=== PATIENT | female | born 1930 | race Caucasian/White ===

== ENCOUNTER 2017-04-05 22:27 | Inpatient (IN) | payer OTHER, MEDICARE ==
[~2017-04-05] VITALS: Ht 152.4 cm; Wt 46.5 kg
[~2017-04-05 22:27] MED LIST: FUROSEMIDE20 M1 PO
--- NOTE | 2017-04-05 23:00 | ED AMS/SEIZURE/WEAK/DIZZY ---
History of Present Illness General Chief Complaint: General Adult Stated Complaint: BIBA FOR LETHARGY, ?PACEMAKER ISSUE PER FAMILY Source: family, old records, EMS Exam Limitations: unable to give history, clinical condition Vital Signs & Intake/Output Vital Signs & Intake/Output Vital Signs Date Time Temp Pulse Resp B/P B/P Pulse O2 O2 Flow FiO2 Mean Ox Delivery Rate 04/06 0415 97.8 80 18 115/68 96 Nasal 2.0L Cannula 04/05 2240 97.5 88 22 112/75 96 Nasal 2.0L Cannula Allergies Coded Allergies: NO KNOWN ALLERGIES (03/12/13) Reconcile Medications Furosemide 20 MG TABLET 1 TAB PO DAILY PRN Fluid Overload (Reported) Rivastigmine (Exelon) 9.5 MG/Patch PAT 1 PAT TOP DAILY DEMENTIA (Reported) Triage Note: PT BIBA FROM HOME, FAMILY TOLD EMS PT IS HAVING "PACEMAKER PROBLEMS" AND PT HAS BEEN LETHARGIC AND WEAK X 1 DAY. PER EMS PT IS ONLY N[place] SPEAKING. PT IS ALERT AND SMILING. VSS, PT PLACED ON MONITOR. RCW PACER NOTED. Triage Nurses Notes Reviewed? yes HPI: Patient presents for evaluation of altered mental status. The patient herself is unable to provide history as she is currently noncommunicative. According to EMS the family was concerned that the patient was having a problem with her pacemaker. They state that she is typically communicative and gets around with a walker. Over the course of today however that stopped. Past History Travel History Traveled to [place] past 21 day No Medical History Any Pertinent Medical History? see below for history Neurological: dementia EENT: NONE Cardiovascular: pacemaker Respiratory: CHRONIC COUGH Gastrointestinal: NONE Hepatic: NONE Renal: UTI Musculoskeletal: NONE Psychiatric: depression Endocrine: NONE Blood Disorders: NONE Cancer(s): breast cancer REPEATER CHIEF/Reproductive: NONE History of MRSA: No History of VRE: No History of CDIFF: No Surgical History Surgical History: mastectomy left side Psychosocial History Who do you live with Patient/Self Services at Home None What is your primary language Serbian Family History Family History, If Any: Relation not specified for: *No pertinent family history Hx Contributory? No Review of Systems Review of Systems Constitutional: Reports: see HPI. Comments Patient unable to provide review of systems Physical Exam Physical Exam General Appearance: see below Comments: Gen.: Thin but otherwise Well-nourished, well-developed, not communicative, not cooperative Head: Normocephalic, atraumatic. Eyes: Normal inspection bilaterally, ANÍBAL. Extraocular movements grossly intact Ears: Normal inspection bilaterally Nose: Normal inspection Throat/mouth : Moist mucosa Neck: no goiter Heart: Regular rate and rhythm, no murmurs rubs or gallops Lungs: Clear to auscultation bilaterally with normal air entry (patient has brief periods of tachypnea) Chest: No apparent tenderness Back: No apparent tenderness, no lesions noted Abdomen: Soft, no apparent tenderness, nondistended, normal bowel sounds Extremities: equal radial pulses, no cyanosis clubbing or edema, no spontaneous movements Neurologic: Awake, alert, Cranial nerves grossly intact, unable to assess speech /dysphagia/dysmetria Skin: warm and dry Psychiatric: Unable to assess Core Measures ACS in differential dx? No CVA/TIA Diagnosis Yes Sepsis Present: No Sepsis Focused Exam Completed? No Progress Differential Diagnosis: anemia, CVA/stroke, dehydration, electrolyte imbalance, GI bleed, hypoglycemia, hypoxia, pneumonia, UTI/pyelo Plan of Care: Orders Procedure Date/time Status Saline Lock 04/05 2258 Active Straight Cath 04/05 2258 Active CULTURE,URINE 04/05 2258 Active URINE DRUG SCREEN FOR ER ONLY 04/05 2258 Complete URINALYSIS 04/05 2258 Complete THYROID STIMULATING HORMONE 04/05 2258 Complete TROPONIN LEVEL 04/05 2258 Complete T3 UPTAKE (THYROXINE BIND CAP) 04/05 2258 Complete THYROXINE 04/05 2258 Complete ETHANOL 04/05 2258 Complete COMPREHENSIVE METABOLIC PANEL 04/05 2258 Complete CBC WITHOUT DIFFERENTIAL 04/05 2258 Complete EKG 04/05 2227 Active Laboratory Tests 04/06/17 0320: Urine Opiates Screen < 100.00, Methadone Screen < 40, Barbiturate Screen < 60, Ur Phencyclidine Scrn < 6.00, Amphetamines Screen < 100, U Benzodiazepines Scrn < 85, Urine Cocaine Screen < 50, Urine Cannabis Screen < 5.00, Urinalysis MOD H , Urine Color MARLO, Urine Clarity CLEAR, Urine pH 6.0, Ur Specific [place] >= 1.030, Urine Protein TRACE H, Urine Ketones NEG, Urine Nitrite NEG, Urine Bilirubin NEG, Urine Urobilinogen 1.0, Ur Leukocyte Esterase NEG, Ur Microscopic SEDIMENT EXAMINED, Urine RBC 3-5, Urine WBC RARE, Ur Epithelial Cells FEW, Urine Bacteria FEW H, Hyaline Casts RARE H, Urine Mucus FEW, Urine Hemoglobin TRACE- INTACT, Urine Glucose NEG 04/06/17 0300: Anion Gap 15, Estimated GFR 52 L, BUN/Creatinine Ratio 88.0 H, Glucose 121 H, Calcium 8.6, Total Bilirubin 1.2, AST 52 H, ALT 69 H, Alkaline Phosphatase 158 H, Troponin I 0.02, Total Protein 6.6, Albumin 3.3 L, Globulin 3.3, Albumin/ Globulin Ratio 1.0 L, TSH 1.740, Thyroxine (T4) 6.1, Thyroxine Binding Indx 48.4 H, CBC w Diff NO MAN DIFF REQ, RBC 3.50 L, MCV 100.9 H, MCH 32.6 H, MCHC 32.3 L, RDW 16.8 H, MPV 9.7, Gran % 72.3, Lymphocytes % 18.7 L, Monocytes % 8.5, Eosinophils % 0.3, Basophils % 0.2, Absolute Granulocytes 7.6 H, Absolute Lymphocytes 2.0, Absolute Monocytes 0.9 H, Absolute Eosinophils 0, Absolute Basophils 0, Serum Alcohol < 10.0 Microbiology 04/06 0320 URINE ROUT: Urine Culture - RECD Diagnostic Imaging: Discussed w/RAD: Radiology Read, CT Scan. Radiology Impression: PATIENT: ZAINA WU PRESENT AGE: 86 PATIENT ACCOUNT NO: [id number] : [birth year] LOCATION: [facility] ORDERING PHYSICIAN: Jan Whittington MD SERVICE DATE: 04/05/17 EXAM TYPE: CAT - CT HEAD WO IV CONTRAST EXAMINATION: CT HEAD WITHOUT CONTRAST CLINICAL INFORMATION: Altered mental status. COMPARISON: 03/15/2013 TECHNIQUE: Contiguous axial imaging was performed from the skull base to vertex without intravenous contrast. DLP: 540 mGy-cm. FINDINGS: There is no evidence of acute intracranial hemorrhage or territorial infarction. No abnormal mass effect or midline shift is seen. Pablo to white matter differentiation is well preserved. No extra-axial fluid collections are identified. Prominence of the ventricles and sulcal spaces is consistent with moderate to severe volume loss. There is difficult to exclude a component of normal pressure hydrocephalus given the prominence of the ventricles. Confluent periventricular and deep white matter hypoattenuation is consistent with severe small vessel ischemic changes. The osseous structures and soft tissues are normal. The mastoid air cells and visualized portions of the paranasal sinuses are well aerated. IMPRESSION: No acute intracranial pathology. Extensive cerebral volume loss with small vessel ischemic changes. It is difficult to exclude a component of normal pressure hydrocephalus given the prominence of the ventricles. DICTATED BY: Alek Gutierrez MD DATE/TIME DICTATED:04/05/172320 DIRECTOR OF CRITICAL CARE:TEE DATE/TIME TRANSCRIBED:2320 CONFIDENTIAL, DO NOT COPY WITHOUT APPROPRIATE AUTHORIZATION. < Electronically signed in Other Vendor System> SIGNED BY: Alek Gutierrez MD 04/05/172327, PATIENT: ZAINA WU PRESENT AGE: 86 PATIENT ACCOUNT NO: [id number] : [birth year] LOCATION: [facility] ORDERING PHYSICIAN: Jan Whittington MD SERVICE DATE: 04/06/17 EXAM TYPE: CAT - CT ABD & PELVIS W IV CONTRAST EXAMINATION: CT ABDOMEN AND PELVIS WITH CONTRAST CLINICAL INFORMATION: Altered mental status with elevated liver studies. COMPARISON: 09/29/2016 TECHNIQUE: Multidetector volumetric imaging was performed of the abdomen and pelvis following IV administration of 94 mL of Optiray 320 intravenous contrast. Sagittal and coronal reformatted images were obtained on the technologist's workstation. DLP: 264 mGy-cm FINDINGS: LUNG BASES: Small to moderate bilateral pleural effusions with bibasilar opacities are noted. The heart is enlarged. Cardiac pacer leads noted. Coronary artery calcifications. LIVER, GALLBLADDER, AND BILIARY TREE: The liver is normal in size, shape, and attenuation. No focal hepatic lesion or biliary ductal dilatation is present. Trace perihepatic ascites, similar to previous. Cholecystectomy. PANCREAS: Mild fatty atrophy of the pancreas with no focal parenchymal abnormality. SPLEEN: Unremarkable. ADRENAL GLANDS: Unremarkable. KIDNEYS AND URETERS: The kidneys are normal in size, shape, and attenuation. No hydronephrosis, hydroureter, or calculi seen. No perinephric stranding. BLADDER: Unremarkable. GASTROINTESTINAL TRACT: The stomach is decompressed with no gross abnormality. The small bowel is normal in caliber. No obstruction. Normal appendix. No colonic wall thickening or inflammatory change. A majority of the colon is also decompressed. There is sigmoid diverticulosis without diverticulitis. No free air. Small amount of pelvic free fluid. ABDOMINAL WALL: No significant hernia is appreciated. Mild anasarca. LYMPH NODES: Normal. VASCULAR: Normal caliber aorta with moderate atherosclerotic calcifications. PELVIC VISCERA: Calcifications of the uterus likely representing small fibroids. No adnexal mass. OSSEOUS STRUCTURES: No acute or suspicious osseous abnormality. Mild anterior wedge compression deformity of the T11 vertebral body is unchanged. Hardware within the left femur is again noted. Degenerative changes of both hips. IMPRESSION: No acute findings in the abdomen or pelvis. No inflammatory changes. Small volume of ascites, similar to previous. Small to moderate bilateral pleural effusions are also similar to prior. DICTATED BY: Alek Gutierrez MD DATE/TIME DICTATED:04/06/17442 DIRECTOR OF CRITICAL CARE:TEE DATE/TIME TRANSCRIBED:04/06/17442 CONFIDENTIAL, DO NOT COPY WITHOUT APPROPRIATE AUTHORIZATION. <Electronically signed in Other Vendor System> SIGNED BY: Alek Gutierrez MD 04/06/17 0450 CXR Impression: PATIENT: ZAINA WU PRESENT AGE: 86 PATIENT ACCOUNT NO: [id number] : [birth year] LOCATION: [facility] ORDERING PHYSICIAN: Jan Whittington MD SERVICE DATE: 04/05/17 EXAM TYPE: RAD - XRY-PORTABLE CHEST XRAY EXAMINATION: XR PORTABLE CHEST CLINICAL INFORMATION: Altered mental status. COMPARISON: 10/02/2016 TECHNIQUE: Portable frontal view of the chest was obtained. FINDINGS: Right chest wall dual-lead pacer is unchanged with leads overlying the right atrium and right ventricle. Left axillary surgical clips. Cardiac leads overlie the chest. Lung volumes are low. Mild opacity at the left base. No significant pleural effusion. No pneumothorax. The cardiomediastinal silhouette is unchanged. IMPRESSION: Opacity at the left base is nonspecific. This could represent atelectasis or pneumonia. Aspiration is a consideration. DICTATED BY: lAek Gutierrez MD DATE/TIME DICTATED:04/05/172314 DIRECTOR OF CRITICAL CARE:TEE DATE/TIME TRANSCRIBED:04/05/172314 CONFIDENTIAL, DO NOT COPY WITHOUT APPROPRIATE AUTHORIZATION. <Electronically signed in Other Vendor System> SIGNED BY: Alek Gutierrez MD 04/05/17 830 Initial ED EKG: NSR, rate (96), POOR R WAVE PROGRESSION Prior EKG: unchanged Comments: 04/05/2017 11:16:18 PM PER SON, NOT TALKING, HEAVY BREATHING, WEAKNESS, POOR PO FOR 1.5 DAYS. 04/06/2017 3:57:19 AM given the patient's elevated BUN and mild anemia, stool guaiac was performed which was heme negative brown stool. Given the elevated transaminases and the patient's altered mental status I have ordered a CAT scan of the abdomen to rule out biliary or liver disease. Patient is being administered IV fluids for the possibility of acute kidney injury. 04/06/2017 6:21:54 AM patient has yet to return to her baseline mental status. The cause for the patient's current clinical condition is unclear at this time although we are entertaining the possibility of a CVA. Given the patient's overall lack of cooperation I am unable to attempt a swallowing study at the bedside. I have ordered that the patient be kept nothing by mouth until this can be performed. Departure Departure Disposition: STILL A PATIENT Condition: Stable Clinical Impression Primary Impression: Altered mental status Qualifiers: Altered mental status type: unspecified Qualified Code: R41.82 - Altered mental status, unspecified Secondary Impressions: Anemia Qualifiers: Anemia type: unspecified type Qualified Code: D64.9 - Anemia, unspecified Elevated BUN Transaminitis Referrals: Isha TIRADO,Adarsh Yang (PCP/Family) Departure Forms: Customer Survey General Discharge Information Admission Note Spoke With: Nito Pagan MD Documentation of Exam: Documentation of any treatments & extenuating circumstances including Concerns Regarding Discharge (functional status, medication knowledge or non-compliance, living conditions, etc.) that warrant an admission rather than observation: Patient presents with altered mental status, generalized weakness and inability or unwillingness to speak. Evaluation reveals an elevated BUN, anemia and transaminitis. Patient's altered mental status persists despite IV fluid bolus. The cause of her altered mental status is unclear at this point but CVA along with acute kidney injury/dehydration are possible. I feel she requires hospitalization for further testing and monitoring of her BUN and transaminases. Given this patient's altered mental status neurology consultation and a follow- up MRI scan should be considered. If the patient's BUN does not respond to IV fluids and nephrology consultation should be considered. GI consultation should be considered given the patient's transaminitis. Finally if the patient is not returned to her baseline ambulatory status, physical therapy consultation should be considered. Given this patient's advanced age and multiple acute medical problems I feel she will require a multiple day hospitalization. Her altered mental status makes her very poor candidate for outpatient management and she would likely return in worse clinical condition. She is also incapable of managing ADLs.
--- NOTE | 2017-04-05 23:20 | RADIOLOGY REPORT ---
EXAMINATION: XR PORTABLE CHEST CLINICAL INFORMATION: Altered mental status. COMPARISON: 10/02/2016 TECHNIQUE: Portable frontal view of the chest was obtained. FINDINGS: Right chest wall dual-lead pacer is unchanged with leads overlying the right atrium and right ventricle. Left axillary surgical clips. Cardiac leads overlie the chest. Lung volumes are low. Mild opacity at the left base. No significant pleural effusion. No pneumothorax. The cardiomediastinal silhouette is unchanged. IMPRESSION: Opacity at the left base is nonspecific. This could represent atelectasis or pneumonia. Aspiration is a consideration.
--- NOTE | 2017-04-05 23:28 | CT SCAN REPORT ---
EXAMINATION: CT HEAD WITHOUT CONTRAST CLINICAL INFORMATION: Altered mental status. COMPARISON: 03/15/2013 TECHNIQUE: Contiguous axial imaging was performed from the skull base to vertex without intravenous contrast. DLP: 540 mGy-cm. FINDINGS: There is no evidence of acute intracranial hemorrhage or territorial infarction. No abnormal mass effect or midline shift is seen. Pablo to white matter differentiation is well preserved. No extra-axial fluid collections are identified. Prominence of the ventricles and sulcal spaces is consistent with moderate to severe volume loss. There is difficult to exclude a component of normal pressure hydrocephalus given the prominence of the ventricles. Confluent periventricular and deep white matter hypoattenuation is consistent with severe small vessel ischemic changes. The osseous structures and soft tissues are normal. The mastoid air cells and visualized portions of the paranasal sinuses are well aerated. IMPRESSION: No acute intracranial pathology. Extensive cerebral volume loss with small vessel ischemic changes. It is difficult to exclude a component of normal pressure hydrocephalus given the prominence of the ventricles.
[2017-04-06 03:21] LABS: ABSOLUTE BASOPHIL COUNT 0 /CUMM (0.0-0.2); ABSOLUTE EOSINOPHIL COUNT 0 /CUMM (0.0-0.7); ABSOLUTE GRANULOCYTE CT 7.6 /CUMM (1.4-6.5); ABSOLUTE MONOCYTE COUNT 0.9 /CUMM (0.10-0.60); BASOPHIL % 0.2 % (0.0-2.0); EOSINOPHIL % 0.3 % (0-5); GRANULOCYTE % 72.3 % (42.2-75.2); HEMATOCRIT 35.3 % (37-47); MEAN CORPUSCULAR HGB 32.6 PG (27.0-31.0); MEAN CORPUSCULAR HGB CONC 32.3 G/DL (33.0-37.0); MEAN CORPUSCULAR VOLUME 100.9 FL (81.0-99.0); MEAN PLATELET VOLUME 9.7 FL (7.4-10.4); PLATELET COUNT 101 /CUMM (130-400); RBC DISTRIBUTION WIDTH 16.8 % (11.5-14.5); WHITE BLOOD CELL COUNT 10.5 /CUMM (4.8-10.8)
--- NOTE | 2017-04-06 04:50 | CT SCAN REPORT ---
EXAMINATION: CT ABDOMEN AND PELVIS WITH CONTRAST CLINICAL INFORMATION: Altered mental status with elevated liver studies. COMPARISON: 09/29/2016 TECHNIQUE: Multidetector volumetric imaging was performed of the abdomen and pelvis following IV administration of 94 mL of Optiray 320 intravenous contrast. Sagittal and coronal reformatted images were obtained on the technologist's workstation. DLP: 264 mGy-cm FINDINGS: LUNG BASES: Small to moderate bilateral pleural effusions with bibasilar opacities are noted. The heart is enlarged. Cardiac pacer leads noted. Coronary artery calcifications. LIVER, GALLBLADDER, AND BILIARY TREE: The liver is normal in size, shape, and attenuation. No focal hepatic lesion or biliary ductal dilatation is present. Trace perihepatic ascites, similar to previous. Cholecystectomy. PANCREAS: Mild fatty atrophy of the pancreas with no focal parenchymal abnormality. SPLEEN: Unremarkable. ADRENAL GLANDS: Unremarkable. KIDNEYS AND URETERS: The kidneys are normal in size, shape, and attenuation. No hydronephrosis, hydroureter, or calculi seen. No perinephric stranding. BLADDER: Unremarkable. GASTROINTESTINAL TRACT: The stomach is decompressed with no gross abnormality. The small bowel is normal in caliber. No obstruction. Normal appendix. No colonic wall thickening or inflammatory change. A majority of the colon is also decompressed. There is sigmoid diverticulosis without diverticulitis. No free air. Small amount of pelvic free fluid. ABDOMINAL WALL: No significant hernia is appreciated. Mild anasarca. LYMPH NODES: Normal. VASCULAR: Normal caliber aorta with moderate atherosclerotic calcifications. PELVIC VISCERA: Calcifications of the uterus likely representing small fibroids. No adnexal mass. OSSEOUS STRUCTURES: No acute or suspicious osseous abnormality. Mild anterior wedge compression deformity of the T11 vertebral body is unchanged. Hardware within the left femur is again noted. Degenerative changes of both hips. IMPRESSION: No acute findings in the abdomen or pelvis. No inflammatory changes. Small volume of ascites, similar to previous. Small to moderate bilateral pleural effusions are also similar to prior.
--- NOTE | 2017-04-06 08:42 | History & Physical ---
Dominic TIRADO,[facility] 04/06/17 0842: General Information and HPI MD Statement: I have seen and personally examined ZAINA WU and documented this H&P. The patient is a 86 year old F who presented with a patient stated chief complaint of [AMS]. Source of Information: old records Exam Limitations: unable to give history, patient's age, confusion, dementia, language barrier History of Present Illness: Ms. Wu is an 86-year-old Eritrean speaking female with PMH of hypertension A.fib s/p pacemaker, left breast cancer 20 years ago status post mastectomy, depression, and dementia who presents for 2 days of AMS, poor oral intake, and generalize weakness. The patient was admitted in September similar symptom and was treated for aspiration pneumonia. Her son reported significant improvement of her symptoms since she was discharged in September until 2 days ago when she started to be mildly confused. For the past 2 days her symptoms progressed from mild confusion to nonproductive cough, poor appetite, chills, night sweats, generalized weakness, and difficulty with ambulation (uses walker at baseline). The son reports chills, diaphoresis but denies fever, palpitation or chest pain. He reports that she was tachycardic up to 110s, and he believed it was regular rhythm. He denies falls, recent travel, loss of consciousness, or sick contact. The Patient has a history of A. fib status post pacemaker, in the ED she was in the 90s with a sinus rhythm. Her pacemaker was placed in 2010, model is PM 2210 , last check in 2016. Allergies/Medications Allergies: Coded Allergies: NO KNOWN ALLERGIES (03/12/13) Home Med list Furosemide 20 MG TABLET 1 TAB PO DAILY PRN Fluid Overload (Reported) Rivastigmine (Exelon) 9.5 MG/Patch PAT 1 PAT TOP DAILY DEMENTIA (Reported) Past History Travel History Traveled to [place] past 21 day No Medical History Neurological: dementia EENT: NONE Cardiovascular: pacemaker Respiratory: CHRONIC COUGH Gastrointestinal: NONE Hepatic: NONE Renal: UTI Musculoskeletal: NONE Psychiatric: depression Endocrine: NONE Blood Disorders: NONE Cancer(s): breast cancer FOOD PROCESSING CHEMIST/Reproductive: NONE History of MRSA: No History of VRE: No History of CDIFF: No Surgical History Surgical History: mastectomy left side Past Family/Social History Family History Relations & Conditions if any Relation not specified for: *No pertinent family history Psychosocial History Services at Home: None Review of Systems Review of Systems Constitutional: Reports: see HPI. Exam & Diagnostic Data Last 24 Hrs of Vital Signs/I&O Vital Signs Date Time Temp Pulse Resp B/P B/P Pulse O2 O2 Flow FiO2 Mean Ox Delivery Rate 04/06 1030 96.7 68 20 128/88 99 Nasal 2.0L Cannula 04/06 0927 97.5 78 18 128/70 98 Nasal 2.0L Cannula 04/06 0736 98.5 86 18 137/75 100 Nasal 2.0L Cannula 04/06 0415 97.8 80 18 115/68 96 Nasal 2.0L Cannula 04/06 0235 96.8 76 20 110/80 95 Nasal 2.0L Cannula 04/05 2240 97.5 88 22 112/75 96 Nasal 2.0L Cannula Intake & Output 04/06 1600 04/06 0800 04/06 0000 Intake Total 1000 Output Total 1 50 Balance 999 -50 Intake, IV 1000 Number 1 Bowel Movements Output, Stool 1 Output, Urine 50 Weight Measurement Method Physical Exam General Appearance Alert, No Acute Distress, unable to assess orientation due to language barrier HEENT Atraumatic, PERRLA, EOMI, Mucous Membr. moist/pink, Mucousy sputum on the mouth Neck Supple Cardiovascular Normal S1, Normal S2, systolic and diastolic 2/6 murmurs best heard at the apex Lungs tachypneic , crackles at based b/l Abdomen Soft, No Tenderness Neurological unable to assess because of confusion and language barrier Extremities No Clubbing, No Cyanosis, No Edema Last 24 Hrs of Labs/Nick: Laboratory Tests 04/06/17 0320: Urine Opiates Screen < 100.00, Methadone Screen < 40, Barbiturate Screen < 60, Ur Phencyclidine Scrn < 6.00, Amphetamines Screen < 100, U Benzodiazepines Scrn < 85, Urine Cocaine Screen < 50, Urine Cannabis Screen < 5.00, Urinalysis MOD H , Urine Color MARLO, Urine Clarity CLEAR, Urine pH 6.0, Ur Specific [place] >= 1.030, Urine Protein TRACE H, Urine Ketones NEG, Urine Nitrite NEG, Urine Bilirubin NEG, Urine Urobilinogen 1.0, Ur Leukocyte Esterase NEG, Ur Microscopic SEDIMENT EXAMINED, Urine RBC 3-5, Urine WBC RARE, Ur Epithelial Cells FEW, Urine Bacteria FEW H, Hyaline Casts RARE H, Urine Mucus FEW, Urine Hemoglobin TRACE- INTACT, Urine Glucose NEG 04/06/17 0300: Anion Gap 15, Estimated GFR 52 L, BUN/Creatinine Ratio 88.0 H, Glucose 121 H, Calcium 8.6, Phosphorus 4.9 H, Magnesium 2.5 H, Total Bilirubin 1.2, AST 52 H , ALT 69 H, Alkaline Phosphatase 158 H, Troponin I 0.02, Total Protein 6.6, Albumin 3.3 L, Globulin 3.3, Albumin/Globulin Ratio 1.0 L, Vitamin B12 > 1000 H, Folate > 20.0 H, TSH 1.740, Thyroxine (T4) 6.1, Free T3 2.3 L, Thyroxine Binding Indx 48.4 H, CBC w Diff NO MAN DIFF REQ, RBC 3.50 L, MCV 100.9 H, MCH 32.6 H, MCHC 32.3 L, RDW 16.8 H, MPV 9.7, Gran % 72.3, Lymphocytes % 18.7 L, Monocytes % 8.5, Eosinophils % 0.3, Basophils % 0.2, Absolute Granulocytes 7.6 H, Absolute Lymphocytes 2.0, Absolute Monocytes 0.9 H, Absolute Eosinophils 0, Absolute Basophils 0, Serum Alcohol < 10.0 Microbiology 04/06 0940 LOWER RESP: Respiratory Culture - ORD 04/06 0940 LOWER RESP: Gram Stain - ORD 04/06 0320 URINE ROUT: Urine Culture - RECD Assessment/Plan Assessment: This is 86-year-old female with extensive past medical history including but not limited to atrial fibrillation status post pacemaker in 2010, dementia, depression, remote left breast cancer status post mastectomy, and hypertension. She presented by her son for chief complaint of 2 days of AMS, dry cough, generalized fatigue, and poor oral intake. Assessment: Patient symptoms progressed over 2 days, during Physical Exam she coughed yellow sputum. CT chest showed bilateral pleural effusion with high density suggestive complication with cellular or proteinaceous content, CT also showed patchy dependent opacity on the right lung which suggest atelectasis or developing pneumonia. Given the history of dementia and the location of the patch on CT, we are suspecting aspiration pneumonia on the patient. The patient has a history of A. fib, status post pacemaker in 2010. 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 No symptom or sign suggestive of heart failure exacerbation. Plan: #Possible aspiration pneumonia * We will admit to the telemetry floor * We will start IV Unasyn * Nothing by mouth, pending swallow eval * Gentle IV hydration @ rate of 50ml/h until diet is ordered. * Sputum culture * Oxygen as needed #Atrial fibrillation status post pacemaker/HF on previous echo * Currently on sinus rhythm * Pacemaker was placed 7 years ago, maybe it's time to change the battery. * History of clots in the ventricle, currently not on anticoagulation, CODE STATUS was discussed with the patient during last admission, we will discuss CODE STATUS again during this admission. * The patient was not taking any medication at home, even though she was prescribed metoprolol and amlodipine during the last month. We'll confirm her home medications. * We'll consider cardiology consult #Hx of intracardiac thrombus during previous echo presented with AMS. * The patient had no focal neurological finding which makes sure less likely. CT scan didn't show no acute intracranial pathology, but showed extensive cerebral volume loss(dementia), radiology was unable to exclude normal pressure hydrocephalus(patient had dementia and urinary incontinence, but no ataxia) * We will place on neuro checks every 4 hours, for the next 24 hours. * No need for endocrinology currently, as her symptom is not typical for stroke. #For the first of chronic conditions including hypertension * We will confirm home medication mainly metoprolol and amlodipine. -Nothing by mouth -DVT PPX: Subcutaneous heparin -Full code, to be discussed with the son As Ranked By This Provider Problem List: 1. Altered mental status Qualifiers Altered mental status type: unspecified Qualified Code: R41.82 - Altered mental status, unspecified Core Measures/Misc (11/03) Acute Coronary Syndrome ACS Diagnosis: No Congestive Heart Failure Congestive Heart Failure Diagnosis No Cerebrovascular Accident CVA/TIA Diagnosis: No VTE (View Protocol) VTE Risk Factors Age>40 No Mechanical VTE Prophylaxis d/t N/A MechProphylax Ordered No VTE Pharm Prophylaxis d/t NA PharmProphylax ordered Sepsis (View protocol) Sepsis Present: No Nito Pagan MD 04/06/17 1415: Attending MD Review Statement Attending Statement Attending MD Statement: examined this patient, discuss w/resident/PA/MAXILLOFACIAL PATHOLOGY, agreed w/resident/PA/MAXILLOFACIAL PATHOLOGY, reviewed EMR data (avail) Attending Assessment/Plan: 86F PMH HTN, atrial fibrillation s/p pacemaker, left breast cancer 20 years ago status post mastectomy, dementia, HFrEF (20%) brought in by family for lethargy and decreased PO intake for the past 2 days. Patient has no complaints but is not speaking much. Similar presentation back in September, thought to be advancing dementia. Patient has been doing fine since then but decompensated recently. Vitals stable, labs unremarkable outside of BUN of 88, which is abnormal for her , with creatinine 1.0 and Hgb 11.4, which is along her baseline, and with no signs of bleeding. Of note, pateint had an echocardiogram in September which showed EF 20%, pulmonary hypertension, and evidence of a left atrial thrombus. The patient is not on anti-coagulation, and it is unclear why. Neuro exam is normal, cranial nerves intact, remaining physical exam normal. 1. Altered mental status 2. Lethargy 3. Uremia 4. HFrEF 5. History of left atrial thrombus Plan - Admit to telemetry - Serial EKG and troponin - Repeat echocardiogram - Cardiology consult - ASA, statin - Start Unasyn for aspiration - Sputum culture - Will speak with family regarding anti-coagulation and goals of care, specifically for MRI or LP if warranted - DVT PPx - Will hold off anti-coagulating for LA thrombus until speaking with family and gathering more information
[2017-04-06 10:30] VITALS: BP 128/88
--- NOTE | 2017-04-06 10:31 | CT SCAN REPORT ---
EXAMINATION: CT CHEST WITHOUT CONTRAST CLINICAL INFORMATION: Altered mental status. Weakness and fatigue. Concern for pneumonia. COMPARISON: Prior chest x-rays including most recent of . Abdominal CT scan of . Prior CT scan of 09/29/16. TECHNIQUE: Multidetector volumetric CT imaging of the chest was done. Axial MIP volume rendering provided. Sagittal and coronal reformatted images were obtained. DLP: 193.31 mGy-cm FINDINGS: SPINDLE CARVER: Right subclavian transvenous pacemaker remains in stable position. Linear atelectasis right lower lobe. LUNGS: There are moderate bilateral pleural effusions. Dependent patchy opacity in the right lower lobe and right upper lobe is consistent with atelectasis. Developing pneumonia is possible. There is minimal subsegmental atelectasis at the left base. No mass or suspicious nodules. MEDIASTINUM: There are several mildly enlarged mesenteric or mediastinal lymph nodes. The largest in the aorticopulmonary window measures 1.5 x 1.0 cm in axial dimension without significant change.. Extensive vascular calcification is present in the thoracic aorta and brachiocephalic vessels and coronary arteries. Aortic diameter is within normal limits. Leads of the transvenous pacemaker reach the right atrium and right ventricle. There is no pericardial effusion. Heart size is mildly enlarged. PLEURA: There are moderate bilateral pleural effusions measuring higher than simple fluid density. AXILLA: Vascular clips are present in the left axilla. No abnormal adenopathy. UPPER ABDOMEN: The pancreas is atrophic. Otherwise unremarkable. OSSEOUS STRUCTURES: There is generalized osteopenia. Compression deformity of the T11 vertebral body is unchanged from prior CT scan. Mild deformity of the manubrium consistent with old fracture is unchanged. No acute abnormality. IMPRESSION: 1. Moderate bilateral pleural effusions measuring higher than simple fluid density suggesting complication with cellular or proteinaceous content. 2. Patchy dependent opacity right lung consistent with atelectasis and/or developing pneumonia. 3. Stable appearance of mildly prominent mediastinal lymph nodes. 4. Chronic bony changes as described. No acute abnormality.
--- NOTE | 2017-04-06 14:19 | Admission Certification ---
Admission Certification Certification Statement - As attending physician, I certify that at the time of - admission, based on clinical presentation, severity of - symptoms, need for further diagnostic testing and - therapeutic interventions, and risk of adverse outcomes - without in-hospital treatment, in my clinical assessment, - this patient requires an acute hospital stay for a minimum - of two nights or longer. I have also considered psychsocial - factors such as support system, advanced age, financial - issues, cognitive issues, and failed out-patient treatments, - past re-admission history, safety of patient, and lack of - compliance as applicable. Specific rationale supporting this admission is: Acute altered mental status with BUN 88, concerning for CVA with history of LA thrombus
[2017-04-06 16:31] VITALS: BP 148/00
[2017-04-06 17:19] VITALS: BP 124/90
[2017-04-06 21:56] VITALS: BP 122/82
[2017-04-07 06:00] VITALS: BP 112/74
--- NOTE | 2017-04-07 07:28 | PN- Housestaff ---
Kareem,[facility] 04/07/17 0728: Subjective Follow-up For: -AMS -HEART FAILURE -A.FIB S/P PACEMAKER, APICAL THROMUS -FAILURE TO THRIVE -ASPIRATION Complaints: no complaints Tele-Events Since Last Visit: SR 80-90BPM No events Subjective: Patient seen and examined, She is sleeping during the encounter, I tried to wake her up, she opens her eyes and go back to sleep with no response to my questions , she is non verbalizing. I spoke with patient's son he mentioned that he noticed rapid change on the patient general condition over the last 4 days, she used to be verbalizing and able to walk using her walker, BUT in the last 4 days she is not able to stand up on her legs, she speaks short sentences, he noticed also SOB breath recently, she breathing using her chest muscle with difficulty per son, also she didn't have that much appetitte. Per son last time she was seen by her otolaryngology surgeon Dr. Sewell was about 2-3 years ago, otolaryngology surgeon told them not to f/u with him, they can go to ED or hospice if any issues, she never been on AC, son doesn't know why? Vitlas stable Review of Systems Constitutional: Reports: no symptoms. Cardiovascular: Reports: no symptoms. Respiratory: Reports: no symptoms. Gastrointestinal: Reports: no symptoms. Genitourinary: Reports: no symptoms. Musculoskeletal: Reports: no symptoms. Skin: Reports: no symptoms. Neurological/Psychological: Reports: no symptoms. Objective Last 24 Hrs of Vital Signs/I&O Vital Signs Date Time Temp Pulse Resp B/P B/P Pulse O2 O2 Flow FiO2 Mean Ox Delivery Rate 04/07 0600 97.5 77 20 112/74 95 Room Air 04/07 0000 Room Air 04/06 2156 98.0 93 18 122/82 94 Room Air 04/06 1719 124/90 04/06 1631 97.3 83 18 148/00 93 04/06 1600 94 Room Air 04/06 1057 99 Nasal 2.0L Cannula 04/06 1030 96.7 68 20 128/88 99 Nasal 2.0L Cannula 04/06 0927 97.5 78 18 128/70 98 Nasal 2.0L Cannula Intake & Output 04/07 0800 04/07 0000 04/06 1600 Intake Total 477 275 4151 Output Total 1 Balance 912 241 6192 Intake, IV 825 478 0226 Intake, Oral 120 Number 1 Bowel Movements Output, Stool 1 Patient 100 lb Weight Weight Bed scale Measurement Method Physical Exam General Appearance: Alert, No Acute Distress HEENT: Atraumatic, PERRLA, EOMI, Mucous Membr. moist/pink Lymphatic: Axillary nl, Cervical nl Cardiovascular: Regular Rate, Normal S1, Normal S2 Lungs: Clear to Auscultation, Normal Air Movement Abdomen: Normal Bowel Sounds, Soft, No Tenderness Current Medications: Current Medications Sig/Krzysztof Start time Last Medication Dose Route Stop Time Status Admin Ampicillin 1,000 MG Q6 04/06 1200 AC 04/07 Sodium Chloride 100 ML IV 0547 Aspirin 300 MG ONCE ONE 04/06 1900 DC 04/06 TX 04/06 1902010 Heparin Sodium 5,000 UNIT Q8 04/06 1400 AC 04/07 (Porcine) SC 0546 Rivastigmine 9.5 MG DAILY 04/06 1856 AC 04/06 TOP 2011 Sodium Chloride 1,000 ML Q13H 04/06 0945 DC 04/06 IV 04/06 2244 1215 Last 24 Hrs of Lab/Nick Results Last 24 Hrs of Labs/Mics: Laboratory Tests 04/07/17 0100: Troponin I 0.04 04/06/17 1850: Troponin I 0.03 Microbiology 04/06 1430 NASOPHARYN: Influenza Virus A & B Rapid Smear - COMP 04/06 0940 LOWER RESP: Respiratory Culture - COLB 04/06 0940 LOWER RESP: Gram Stain - COLB Assessment/Plan Assessment: #Altered mental status: Which could be related to infectious etiology, or neurological events * Will continue tele monitoring * Continue IV Unasyn, f/u sputum cx. * Swallow eval * Gentle IV hydration @ rate of 50ml/h until diet is ordered. * Her pacemaker is incombatible with MRI, so we couldn't proceed with MRI brain #A. Fib s/p pacemaker in the setting of apical thrombus, HF on previous echo with EF 20% * Currently on sinus rhythm * Pacemaker was placed 7 years ago, maybe it's time to change the battery. * Will discuss with otolaryngology surgeon the need for AC, given apical thrombus on Echo * Attending on the last admission wrote on the discharge summary that: I did discuss the echo finding wit her PCP Dr Adarsh Vieira and her otolaryngology surgeon Dr Alek Sewell today. 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 According to her otolaryngology surgeon she was on anticoagulation in the past but this was stopped due to bleding and falls. He stated that due to her advanced dementia he and the son had agreed jean claude further testing and interventions. The patient's otolaryngology surgeon had recommended hospice care to the son. * The patient was not taking any medication at home, even though she was prescribed metoprolol and amlodipine during the last month. We'll confirm her home medications. * #Dehydration with elevated BUN * BEP, CBC AND LFT is not drawn yet, will change the order to stat because we need to assess the kidney function prior to MRI * Her labs showed hypernatremia and increased BUN with creatinie of 1.2, will switch to D5/half normal saline at 50ml/hr * Please continue to monitor I's AND O's #Transaminitis * LFT is not done yet, order changed to stat. Update: Transaminitis further elevated, will check abdominal US #B/L moderate pleural effusion: * Most likely related to heart failure with low EF #Failure to thrive: * Will place neutritional consult. * She failed swallow eval. today, will repeat that tomorrow #Hx. of hypertension * Will hold on BP meds -Nothing by mouth -DVT PPX: Subcutaneous heparin -Full code, to be discussed with the son Event note: Today Dr. Morales and I had a meeting with the patient's son Mr. Alvarado Almendarez. We discussed with him in details his mother prognosis. We explained for him the risks and benefits of anticoagulation given that she has A.fib in the setting of Apical thrombus, She is not a candidate for anticoagulation as she has a very high risk of fall and major bleeding, her Son understand the risks, he knows that she may have strok at any time with no anticoagulation, also we are not able to do head MRI as she had MRI incompatible pacemaker, BUT that is not going to change the management anyway. We explained for him what Full code and CPR means and what DNR/DNI means and he wants to change his mother code status to DNR/DNI, he is not considering comfort measures and hospice, he wants his mother to at home if her condition gets worse. For now will continue antibiotic therapy, Gentle IV hydration and if she failed swallow evaluation will discuss with him about tube feed option, however, currently he is not favoring tube feed , although he knows that there is a big chance that she is not going to pass swallow evaluation tomorrow. Problem List: 1. Transaminitis 2. Altered mental status 3. Elevated BUN 4. Heart failure 5. Pleural effusion Pain Ratin Pain Location: - Pain Goal: Remain pain free Pain Plan: - Tomorrow's Labs & Rationales: cbc,bep DVT/Prophylaxis: mechanical, pharmacological Sahara Morales MD 04/07/17 1350: Attending MD Review Statement Attending Statement Attending MD Statement: examined this patient, discuss w/resident/PA/UNIT TENDER, agreed w/resident/PA/UNIT TENDER, discussed with family, reviewed EMR data (avail), discussed with nursing, reviewed images Attending Assessment/Plan: Appreciate cardiology follow-up. This is an 86-year-old female with a past medical history of hypertension, atrial fibrillation not on anticoagulation due to high fall and bleeding risk, dementia, pacemaker placement and chronic systolic heart failure with an EF of 20% and chronic left atrial thrombus again not anticoagulated because the risks outweigh the benefits. She is here with an episode of lethargy and decreased responsiveness with a white count of 10,000, and a chest x-ray and chest CT showing likely pneumonia in the right lower base. We are treating her with IV Unasyn for aspiration pneumonia and a swallow eval is pending. She was dehydrated on admission with a BUN of 88 and no diuretics obviously have been given in this view of the dehydration and will need to follow-up the labs today including the BUN and and the LFTs. Overall prognosis is poor and we need to address CODE STATUS with the patient's son as well. She has been recommended for hospice care by her outpatient otolaryngology surgeon.
--- NOTE | 2017-04-07 10:52 | Cons- Cardiology ---
Abhishek TIRADO,[facility] 04/07/17 1024: General Information and HPI Consulting Request Date of Consult: 04/07/17 Requested By: Andrew TIRADO,Sahara Garcia Reason for Consult: A. Fib HF with LVEF 20-25% in 2017 Left ventricular apical thrombus Source of Information: patient, family, old records Exam Limitations: unable to give history, dementia, language barrier History of Present Illness: Ms. Almendarez is 86-year-old Scottish speaking female with PMH of hypertension, A.fib s/p pacemaker 2010, left breast cancer 20 years ago status post mastectomy , depression, and dementia who presented with chief complain of fatigue, decreased oral intake for the past 2 days. History today was obtained from patient's son giving patient hx of dementia, and language barrier. Son (Alvarado) reported that patient was in regular state of health until 2 days ago when she started to be fatigued, unable to ambulate (baseline ambulate with walker independently), poor oral intake. He noticed that patient was heavily breathing, heart rate was up to 110 prior to her ED visit. He denied any history of chest pain, palpitation, chronic leg swelling, shortness of breath, cough, fever. He reported occasional leg swelling while setting howevere will improve dramatically after leg elevation. Patient does not take Lasix 20 mg daily, when necessary for leg swelling. She does not take prescribed metoprolol succinate 25 mg and amlodipine 10 mg becuase "blood pressure is always low" and heart rate usually below 100. Patient used to follow up with nursing program chair Dr. Alek Sewell [phone] [facility], used to follow up with him for 6 years however last visit was January 2016 as he withdrawal her from his services (per son) suggested to have hospice evaluation. Son reported that patient was never on blood thinner, and pacemaker wasn't checked in the last 2 years. By reviewing last admission September 2016 discharge summary, echocardiogram was obtained that showed severely reduced global left ventricular ejection fraction 20-25% and left ventricular apical thrombus in addition to tricuspid insufficiency and mitral insufficiency, severe pulmonary hypertension and right ventricular systolic pressure of 17 mmHg. According to DS attending addendum Dr. Jones, "I did discuss thje echo finding wit her PCP Dr Adarsh Vieira and her nursing program chair Dr Alek Sewell today. Her EF was 55% in 2014 however the apical thrombus is chronic dating back to 2009. According to her nursing program chair she was on anticoagulation in the past but this was stopped due to bleding and falls. He stated that due to her advanced dementia he and the son had agreed jean claude further testing and interventions. The patient's nursing program chair had recommended hospice care to the son." Allergies/Medications Allergies: Coded Allergies: NO KNOWN ALLERGIES (03/12/13) Home Med List: Furosemide 20 MG TABLET 1 TAB PO DAILY PRN Fluid Overload (Reported) Rivastigmine (Exelon) 9.5 MG/Patch PAT 1 PAT TOP DAILY DEMENTIA (Reported) Past History Travel History Traveled to [place] past 21 day No Medical History Blood Transfusion Hx: No Neurological: dementia EENT: NONE Cardiovascular: hypertension, pacemaker Respiratory: CHRONIC COUGH Gastrointestinal: NONE Hepatic: NONE Renal: UTI Musculoskeletal: NONE, PELVIC FX Psychiatric: depression Endocrine: NONE Blood Disorders: NONE Cancer(s): breast cancer GYM MANAGER/Reproductive: NONE Surgical History Surgical History: mastectomy left side HIP REPAIR Family History Relations & Conditions If Any: Relation not specified for: *No pertinent family history Psychosocial History Where Do You Live? Home Services at Home: None Smoking Status: Never Smoked Exam & Diagnostic Data Vital Signs and I&O Vital Signs Date Time Temp Pulse Resp B/P B/P Pulse O2 O2 Flow FiO2 Mean Ox Delivery Rate 04/07 0600 97.5 77 20 112/74 95 Room Air 04/07 0000 Room Air 04/06 2156 98.0 93 18 122/82 94 Room Air 04/06 1719 124/90 04/06 1631 97.3 83 18 148/00 93 04/06 1600 94 Room Air 04/06 1057 99 Nasal 2.0L Cannula 04/06 1030 96.7 68 20 128/88 99 Nasal 2.0L Cannula Intake & Output 04/07 1600 04/07 0800 04/07 0000 04/06 1600 04/06 0800 04/06 0000 Intake Total 557 273 5794 Output Total 1 50 Balance 494 949 8669 -50 Intake, IV 668 358 2197 Intake, Oral 120 Number 1 1 Bowel Movements Output, Stool 1 Output, Urine 50 Patient 45.388 kg Weight Weight Bed scale Measurement Method Physical Exam: -Awake, not in acute distress -Neck no JVD -CVS S1, S2, ejection systolic murmur with great intensity at fifth intercostal space grade 4/6, carotid bruit couldn't be assessed because of patient position and uncorporation -Chest bilateral clear, no basal crackles -Abdomen soft, no tenderness, bowel sounds positive -Extremity no edema Labs/Nick Results: Laboratory Tests 04/07 04/07 04/07 04/06 0753 0500 0100 1850 Chemistry Sodium Cancelled Potassium Cancelled Chloride Cancelled Carbon Dioxide Cancelled Anion Gap Cancelled BUN Cancelled Creatinine Cancelled BUN/Creatinine Ratio Cancelled Total Bilirubin Cancelled Direct Bilirubin Cancelled AST Cancelled ALT Cancelled Alkaline Phosphatase Cancelled Troponin I (< 0.11 ng/ml) 0.04 0.03 Total Protein Cancelled Albumin Cancelled Hematology CBC w Diff Cancelled WBC Cancelled RBC Cancelled Hgb Cancelled Hct Cancelled MCV Cancelled MCH Cancelled MCHC Cancelled RDW Cancelled Plt Count Cancelled MPV Cancelled 04/06 0320 Toxicology Urine Opiates Screen (>2000 NG/ML) < 100.00 Methadone Screen (>300 NG/ML) < 40 Barbiturate Screen (>200 NG/ML) < 60 Ur Phencyclidine Scrn (>25 NG/ML) < 6.00 Amphetamines Screen (>1000 NG/ML) < 100 U Benzodiazepines Scrn (>200 NG/ML) < 85 Urine Cocaine Screen (>300 NG/ML) < 50 Urine Cannabis Screen (>50 NG/ML) < 5.00 Urines Urinalysis MOD H Urine Color (YEL,AMB,STR) MARLO Urine Clarity (CLEAR) CLEAR Urine pH (5.0 - 8.0) 6.0 Ur Specific [place] (1.001 - 1.035) >= 1.030 Urine Protein (NEG,<30 MG/DL) TRACE H Urine Ketones (NEG) NEG Urine Nitrite (NEG) NEG Urine Bilirubin (NEG) NEG Urine Urobilinogen (0.1 - 1.0 EU/dl) 1.0 Ur Leukocyte Esterase (NEG) NEG Ur Microscopic SEDIMENT EXAMINED Urine RBC (0 - 5 /HPF) 3-5 Urine WBC (0 - 2 /HPF) RARE Ur Epithelial Cells (NONE,FEW) FEW Urine Bacteria (NEG/NONE) FEW H Hyaline Casts (0/LPF) RARE H Urine Mucus (FEW,NONE) FEW Urine Hemoglobin (NEG) TRACE-INTACT Urine Glucose (N MG/DL) NEG 04/06 0300 Chemistry Sodium (137 - 145 mmol/L) 145 Potassium (3.5 - 5.1 mmol/L) 4.9 Chloride (98 - 107 mmol/L) 111 H Carbon Dioxide (22 - 30 mmol/L) 19 L Anion Gap (5 - 16) 15 BUN (7 - 17 mg/dL) 88 H Creatinine (0.5 - 1.0 mg/dL) 1.0 Estimated GFR (>60 ml/min) 52 L BUN/Creatinine Ratio (7 - 25 %) 88.0 H Glucose (65 - 99 mg/dL) 121 H Calcium (8.4 - 10.2 mg/dL) 8.6 Phosphorus (2.5 - 4.5 mg/dL) 4.9 H Magnesium (1.6 - 2.3 mg/dL) 2.5 H Total Bilirubin (0.2 - 1.3 mg/dL) 1.2 AST (14 - 36 U/L) 52 H ALT (9 - 52 U/L) 69 H Alkaline Phosphatase (<127 U/L) 158 H Troponin I (< 0.11 ng/ml) 0.02 Total Protein (6.3 - 8.2 g/dL) 6.6 Albumin (3.5 - 5.0 g/dL) 3.3 L Globulin (1.9 - 4.2 gm/dL) 3.3 Albumin/Globulin Ratio (1.1 - 2.2 %) 1.0 L Vitamin B12 (239 - 931 pg/mL) > 1000 H Folate (2.76 - 20.0 ng/mL) > 20.0 H TSH (0.270 - 4.200 uIU/mL) 1.740 Thyroxine (T4) (4.5 - 10.9 ug/dL) 6.1 Free T3 (2.34 - 5.61 pg/mL) 2.3 L Thyroxine Binding Indx (23.5 - 40.5 % UPTAKE) 48.4 H Hematology CBC w Diff NO MAN DIFF REQ WBC (4.8 - 10.8 /CUMM) 10.5 RBC (4.20 - 5.40 /CUMM) 3.50 L Hgb (12.0 - 16.0 G/DL) 11.4 L Hct (37 - 47 %) 35.3 L MCV (81.0 - 99.0 FL) 100.9 H MCH (27.0 - 31.0 PG) 32.6 H MCHC (33.0 - 37.0 G/DL) 32.3 L RDW (11.5 - 14.5 %) 16.8 H Plt Count (130 - 400 /CUMM) 101 L MPV (7.4 - 10.4 FL) 9.7 Gran % (42.2 - 75.2 %) 72.3 Lymphocytes % (20.5 - 51.1 %) 18.7 L Monocytes % (1.7 - 9.3 %) 8.5 Eosinophils % (0 - 5 %) 0.3 Basophils % (0.0 - 2.0 %) 0.2 Absolute Granulocytes (1.4 - 6.5 /CUMM) 7.6 H Absolute Lymphocytes (1.2 - 3.4 /CUMM) 2.0 Absolute Monocytes (0.10 - 0.60 /CUMM) 0.9 H Absolute Eosinophils (0.0 - 0.7 /CUMM) 0 Absolute Basophils (0.0 - 0.2 /CUMM) 0 Toxicology Serum Alcohol (<10 MG/DL) < 10.0 Diagnostic Data EKG Results Sinus rhythm, rate 81, deep Q-wave in lead II, III and AVF. QTC 463 CXR Results IMPRESSION: Opacity at the left base is nonspecific. This could represent atelectasis or pneumonia. Aspiration is a consideration. Other Results Echocardiogram Exam Date: 10/01/2016 19:31 Exam Location: [address] [place] [address] Ht (in): 62 Wt (lb): 100 BSA: 1.40 BP: 128 / 76 Ordering Physician: ZEINA JENKINS MD Referring Physician: ZEINA JENKINS MD Technologist: Salma Alarcon [facility] Room Number: [id number] Indications: HYPERTENSION Rhythm: Sinus Technical Quality: Good FINDINGS Left Ventricle Left ventricular cavity size at the upper limits of normal. Severely reduced global left ventricular systolic function. Moderately abnormal left ventricular ejection fraction estimated at 20-25%. Probable left ventricular apical thrombus. Right Ventricle Right ventricular dilatation. Right Atrium Right atrial dilatation. Left Atrium Left atrial dilatation. Mitral Valve Mitral valve thickened. Moderate mitral regurgitation. Aortic Valve Trileaflet aortic valve. Diffuse thickening (sclerosis) of the aortic valve cusps without reduced excursion. No aortic stenosis. Mild aortic regurgitation. Tricuspid Valve Tricuspid valve not well visualized, grossly normal. Moderate-to- severe tricuspid regurgitation. Right ventricular systolic pressure estimated to be elevated at 70 mmHg. Pulmonic Valve Pulmonic valve not well visualized, grossly normal. Mild pulmonic regurgitation. Pericardium No pericardial effusion. Great Vessels Aortic root and proximal ascending aorta not well visualized, grossly normal. CONCLUSIONS 1. Mild aortic sclerosis is present with mild aortic insufficiency. 2. Mitral leaflet thickening is present wtih anular calcification and mitral insufficiency which is at least moderate in severity with moderate left atrial enlargement. 3. There is no significant pericardial fluid present. 4. The left ventricular chamber size is upper normal with significant global hypokinesia and an ejection fraction of approximately 20%. The wall motion is worse in the anteroseptal and anteroapical segments. There is some preservation of lateral wall motion. 5. THere appears to be a relatively large laminar apical thrombus present. 6. Mild to moderate enlargement of the right heart chambers is present wtih moderate to severe tricuspid insufficiency, mild pulmonic insufficiency and severe pulmonary hypertension with an estimated RV systolic pressure of at least 70 mmHg. 7. Pacemaker wires are also noted in the right heart chambers. 8. Increased echodensity is also noted at the RV apex and the possibility of thrombus in that region cannot be excluded. 9. Additional images were obtained following the administration of IV contrast. Cherelle Roberson M.D. (Electronically Signed) Final Date: 02 October 2016 14:13 Assessment/Plan Assessment/Plan Ms. Almendarez is 86-year-old Scottish speaking female with PMH of hypertension, A.fib s/p pacemaker 2010, left breast cancer 20 years ago status post mastectomy , depression, and dementia who presented with chief complain of fatigue, decreased oral intake for the past 2 days. Impression 1- History of A. Fib states post pacemaker and not on anticoagulant. Currently sinus ryhthem and rate controlled without medication. Telementoring record reviewed, NSR 2- CHF with LVEF 20-25% however no signs of volume overload 3- Bilateral pleural effusion mild and moderate stable from September 2016 4- Left ventriculat thrombus chronic from 2009 (based on DS from september 2016) Plan -Continue patient monitor -Please check ProBNP -Will hold off diuretics given clinical picture and elevated BUN which represents dehydration -In/out measurment -Plan for pacemaker interrogation, pending pacemaker type -Follow up echocardiogram -Consider starting Aspirin 81 mg daily -Obtain records from nursing program chair Consult Acknowledgment - Thank you for your consult request. Ashish TIRADO,Danilo Oliveira/19/18 1420: Assessment/Plan Consult Acknowledgment - Thank you for your consult request. Attending MD Review Statement Attending Statement Attending MD Statement: examined this patient, discuss w/resident/PA/MECHANICAL CAR CHECKER, agreed w/resident/PA/MECHANICAL CAR CHECKER, discussed with family, discussed w/nursing, reviewed images, amended to note Attending Assessment/Plan: Agree with house staff noted above. The patient is an 86-year-old Scottish- speaking female with history of hypertensio, atrial fibrillation, permanent pacemaker, and cardiomyopathy. She has been followed in the office by [facility] in the past, however she is not currently following up with a nursing program chair, and the patient reports that she was discharged by Dr. Sewell's practice. The patient is a poor historian secondary to dementia and language barrier. Most of the history is obtained from her son. She presents with poor p.o. intake, malaise, and increased confusion over the past few days. She is found to have evidence of aspiration pneumonia she is also noted to have a mild troponin elevation. During the prior admission, she was noted to have evidence of possible left ventricular thrombus on echocardiogram, however this has apparently been noted going back many years as per the patient's son. She is not on anticoagulation because she has been felt to be not a candidate for anti-coagulation. The patient's son reports that her pacemaker has not been checked recently. Assessment: 1. Cardiomyopathy 2. Atrial fibrillation 3. Permanent pacemaker 4. History of left ventricular thrombus 5. Aspiration pneumonia 6. Evidence of volume depletion with acute on chronic kidney injury Recommendations: 1. Echocardiogram 2. Monitor on telemetry 3. IV antibiotic therapy for aspiration pneumonia 4. Continue aspirin and statin 5. The patient's son will get back to us regarding the brand of the pacemaker. Once this is known, we will arrange for the pacemaker to be interrogated. 6. Please request records from her prior nursing program chair, Dr. Sewell
[2017-04-07 12:57] LABS: ABSOLUTE BASOPHIL COUNT 0 /CUMM (0.0-0.2); ABSOLUTE EOSINOPHIL COUNT 0 /CUMM (0.0-0.7); ABSOLUTE GRANULOCYTE CT 6.8 /CUMM (1.4-6.5); ABSOLUTE LYMPH COUNT 1.8 /CUMM (1.2-3.4); ABSOLUTE MONOCYTE COUNT 0.7 /CUMM (0.10-0.60); BASOPHIL % 0.4 % (0.0-2.0); EOSINOPHIL % 0 % (0-5); GRANULOCYTE % 72.2 % (42.2-75.2); HEMATOCRIT 36.6 % (37-47); MEAN CORPUSCULAR HGB 32.9 PG (27.0-31.0); MEAN CORPUSCULAR HGB CONC 32.8 G/DL (33.0-37.0); MEAN CORPUSCULAR VOLUME 100.5 FL (81.0-99.0); PLATELET COUNT 108 /CUMM (130-400); RBC DISTRIBUTION WIDTH 17.2 % (11.5-14.5); RED BLOOD CELL CT 3.65 /CUMM (4.20-5.40); WHITE BLOOD CELL COUNT 9.4 /CUMM (4.8-10.8)
[2017-04-07 14:00] VITALS: BP 110/60
[2017-04-07 22:24] VITALS: BP 108/72
--- NOTE | 2017-04-07 23:01 | ULTRASOUND REPORT ---
EXAMINATION: US ABDOMEN COMPLETE CLINICAL INFORMATION: Transaminitis.. COMPARISON: CT from 04/06/2017 TECHNIQUE: Real-time imaging of the abdominal viscera. Limited portable examination. FINDINGS: PANCREAS: The visualized portion of the pancreatic body appears hyperechoic with no focal lesion. ABDOMINAL AORTA: The proximal segment is normal in caliber. INFERIOR VENA CAVA: Visualized portions are normal. LIVER: Normal. The liver demonstrates normal size, contour and echogenicity. No focal lesion or intrahepatic biliary duct dilatation. GALLBLADDER: Status post cholecystectomy. COMMON BILE DUCT: Normal in caliber measuring 0.5 cm in diameter. RIGHT KIDNEY: Somewhat small in size. No hydronephrosis. No renal calculi or focal parenchymal lesions. The kidney measures 7.7 cm in maximum dimension. LEFT KIDNEY: Somewhat small in size. There is mild fullness of the renal pelvis. No significant hydronephrosis. No renal calculi or focal parenchymal lesions. The kidney measures 7.9 cm in maximum dimension. SPLEEN: Normal. The spleen measures 5.8 cm in maximum dimension. FREE FLUID: Small volume ascites. IMPRESSION: Hyperechoic appearance of the pancreatic parenchyma. Correlate for pancreatitis. No focal pancreatic lesion. Unremarkable appearance of the liver. No biliary ductal dilatation.
[2017-04-08 07:53] LABS: ABSOLUTE BASOPHIL COUNT 0 /CUMM (0.0-0.2); ABSOLUTE EOSINOPHIL COUNT 0 /CUMM (0.0-0.7); ABSOLUTE GRANULOCYTE CT 5.6 /CUMM (1.4-6.5); ABSOLUTE LYMPH COUNT 2.2 /CUMM (1.2-3.4); ABSOLUTE MONOCYTE COUNT 0.7 /CUMM (0.10-0.60); BASOPHIL % 0.4 % (0.0-2.0); EOSINOPHIL % 0.4 % (0-5); GRANULOCYTE % 65.3 % (42.2-75.2); HEMATOCRIT 35.6 % (37-47); MEAN CORPUSCULAR HGB 32.9 PG (27.0-31.0); MEAN CORPUSCULAR HGB CONC 32.4 G/DL (33.0-37.0); MEAN CORPUSCULAR VOLUME 101.5 FL (81.0-99.0); MEAN PLATELET VOLUME 9.7 FL (7.4-10.4); PLATELET COUNT 120 /CUMM (130-400); RBC DISTRIBUTION WIDTH 17.3 % (11.5-14.5); RED BLOOD CELL CT 3.51 /CUMM (4.20-5.40); WHITE BLOOD CELL COUNT 8.5 /CUMM (4.8-10.8)
--- NOTE | 2017-04-08 07:58 | PN- Housestaff ---
Kareem,Chi [facility] 04/08/17 0757: Subjective Follow-up For: -AMS -HEART FAILURE -A.FIB S/P PACEMAKER, APICAL THROMUS -FAILURE TO THRIVE -ASPIRATION Complaints: no complaints Tele-Events Since Last Visit: SR 80-90BPM No events Subjective: Patient seen and examined, more bright today, she is Cymro speaker cannot answer my question appropriately. Vitals stable overnight Review of Systems Constitutional: Reports: no symptoms. Cardiovascular: Reports: peripheral edema. Respiratory: Reports: cough, short of breath. Gastrointestinal: Reports: abdominal pain. Genitourinary: Reports: no symptoms. Musculoskeletal: Reports: no symptoms. Objective Last 24 Hrs of Vital Signs/I&O Vital Signs Date Time Temp Pulse Resp B/P B/P Pulse O2 O2 Flow FiO2 Mean Ox Delivery Rate 04/08 0633 97.0 78 20 98 Room Air 04/07 2224 96.0 73 20 108/72 94 04/07 1600 Room Air 04/07 1400 98.1 79 20 110/60 95 Room Air Intake & Output 04/08 1600 04/08 0800 04/08 0000 Intake Total 400 200 Output Total Balance 400 200 Intake, IV 400 200 Physical Exam General Appearance: Alert, No Acute Distress Lymphatic: Axillary nl, Cervical nl Cardiovascular: Normal S1, Normal S2, systolic murmur Lungs: decrease air entry bilateral Abdomen: Soft, tenderness in the right upper quadrant Neurological: Normal Gait, Strength at 5/5 X4 Ext, Normal Tone, Sensation Intact Extremities: No Edema, Normal Pulses Vascular: Normal Pulses, Pulses Symmetrical Current Medications: Current Medications Sig/Krzysztof Start time Last Medication Dose Route Stop Time Status Admin Ampicillin 1,000 MG Q6 04/06 1200 DC 04/07 Sodium Chloride 100 ML IV 0547 Ampicillin Sodium/ 1,500 MG Q12H 04/07 1200 AC 04/08 Sulbactam Sodium IV 0001 Sodium Chloride 100 ML Aspirin 81 MG DAILY 04/08 1000 AC PO Atorvastatin Calcium 80 MG 1700 04/08 1700 AC PO Dextrose/Sodium 1,000 ML Q20H 04/08 0845 DC Chloride IV Dextrose/Sodium 1,000 ML Q20H 04/07 1545 DC 04/07 Chloride IV 1620 Dextrose/Water 1,000 ML Q20H 04/08 0930 AC IV Heparin Sodium 5,000 UNIT Q8 04/06 1400 AC 04/08 (Porcine) SC 0501 Lactated Ringer's 1,000 ML Q13H 04/08 0745 DC 04/08 IV 0805 Rivastigmine 9.5 MG 04/07 04/07 [facility] 2057 Sodium Chloride 1,000 ML Q20H 04/07 1545 CAN IV Last 24 Hrs of Lab/Nick Results Last 24 Hrs of Labs/Mics: Laboratory Tests 04/08/17 0732: Lipase Cancelled 04/08/17 0633: Anion Gap 16, Estimated GFR 47 L, BUN/Creatinine Ratio 82.7 H, Total Bilirubin 1.5 H, Direct Bilirubin 0.6 H, AST 60 H, ALT 82 H, Alkaline Phosphatase 170 H, Total Protein 6.0 L, Albumin 2.8 L, Amylase 39, Lipase 127, CBC w Diff NO MAN DIFF REQ, RBC 3.51 L, MCV 101.5 H, MCH 32.9 H, MCHC 32.4 L, RDW 17.3 H, MPV 9.7, Gran % 65.3, Lymphocytes % 26.1, Monocytes % 7.8, Eosinophils % 0.4, Basophils % 0.4, Absolute Granulocytes 5.6, Absolute Lymphocytes 2.2, Absolute Monocytes 0.7 H, Absolute Eosinophils 0, Absolute Basophils 0 04/07/17 1205: Sodium Cancelled, Potassium Cancelled, Chloride Cancelled, Carbon Dioxide Cancelled, Anion Gap Cancelled, BUN Cancelled, Creatinine Cancelled, BUN/ Creatinine Ratio Cancelled, Total Bilirubin Cancelled, Direct Bilirubin Cancelled, AST Cancelled, ALT Cancelled, Alkaline Phosphatase Cancelled, Total Protein Cancelled, Albumin Cancelled 04/07/17 1205: Anion Gap 19 H, Estimated GFR 42 L, BUN/Creatinine Ratio 78.3 H, Total Bilirubin 1.9 H, Direct Bilirubin 0.8 H, AST 67 H, ALT 79 H, Alkaline Phosphatase 194 H, Troponin I 0.02, Pcg-U-Ecarabyajrs Pept 04706 H, Total Protein 6.4, Albumin 3.1 L, CBC w Diff NO MAN DIFF REQ, RBC 3.65 L, MCV 100.5 H, MCH 32.9 H, MCHC 32.8 L, RDW 17.2 H, MPV 10.0, Gran % 72.2, Lymphocytes % 19.4 L, Monocytes % 8.0, Eosinophils % 0, Basophils % 0.4, Absolute Granulocytes 6.8 H, Absolute Lymphocytes 1.8, Absolute Monocytes 0.7 H, Absolute Eosinophils 0, Absolute Basophils 0 Assessment/Plan Assessment: #Altered mental status: Which could be related to infectious etiology, or neurological events * Will continue tele monitoring * Continue IV Unasyn, * Swallow eval today * Gentle IV hydration @ rate of 50ml/h until diet is ordered. Will change IV fluids today to D5W as the patient has hypernatremia which improved today to 151 after changing her fluid yesterday to D5 half normal saline, yesterday to was 153 * Her pacemaker is incombatible with MRI, so we couldn't proceed with MRI brain #A. Fib s/p pacemaker in the setting of apical thrombus, HF on previous echo with EF 20% * Currently on sinus rhythm * Pacemaker was placed 7 years ago, maybe it's time to change the battery. * Will discuss with video engineer the need for AC, given apical thrombus on Echo * Attending on the last admission wrote on the discharge summary that: I did discuss the echo finding wit her PCP Dr Adarsh Vieira and her video engineer Dr Alek Sewell today. 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 According to her video engineer she was on anticoagulation in the past but this was stopped due to bleding and falls. He stated that due to her advanced dementia he and the son had agreed jean claude further testing and interventions. The patient's video engineer had recommended hospice care to the son. * The patient was not taking any medication at home, even though she was prescribed metoprolol and amlodipine during the last month. We'll confirm her home medications. * #Dehydration with elevated BUN * BEP, CBC AND LFT is not drawn yet, will change the order to stat because we need to assess the kidney function prior to MRI * Her labs showed hypernatremia and increased BUN with creatinie of 1.2, which improved today, her sodium today is 151 down from 153, and her creatinine is 1.1 down from 1.2. will switch her IV fluids to D5W * Please continue to monitor I's AND O's #Transaminitis * LFTs slightly elevated, I discussed with Dr. Maher who thinks that her liver May Be Stretched and Causing the Pain and Dilated with Elevated AST ALT and Alkaline Phosphatase, we cannot start her on famotidine and she is nothing by mouth secondary to her the risk of aspiration #Pancreatitis on abdominal ultrasound: I discussed with Dr. Maher, ultrasound is not a good study to assess pancreatitis patient had CAT scan abdomen the day before yesterday and it was normal, her amylase and lipase is within normal limits. #B/L moderate pleural effusion: * Most likely related to heart failure with low EF #Failure to thrive: * Will place neutritional consult. * She failed swallow eval. today, will repeat that tomorrow #Hx. of hypertension * Will hold on BP meds -Nothing by mouth -DVT PPX: Subcutaneous heparin -Full code, to be discussed with the son Event note: Today Dr. Morales and I had a meeting with the patient's son Mr. Alvarado Almendarez. We discussed with him in details his mother prognosis. We explained for him the risks and benefits of anticoagulation given that she has A.fib in the setting of Apical thrombus, She is not a candidate for anticoagulation as she has a very high risk of fall and major bleeding, her Son understand the risks, he knows that she may have strok at any time with no anticoagulation, also we are not able to do head MRI as she had MRI incompatible pacemaker, BUT that is not going to change the management anyway. We explained for him what Full code and CPR means and what DNR/DNI means and he wants to change his mother code status to DNR/DNI, he is not considering comfort measures and hospice, he wants his mother to at home if her condition gets worse. For now will continue antibiotic therapy, Gentle IV hydration and if she failed swallow evaluation will discuss with him about tube feed option, however, currently he is not favoring tube feed , although he knows that there is a big chance that she is not going to pass swallow evaluation tomorrow. Problem List: 1. Transaminitis 2. Anemia 3. Altered mental status 4. Elevated BUN 5. Heart failure Pain Ratin Pain Location: Abdomen Pain Goal: Remain pain free Pain Plan: - Tomorrow's Labs & Rationales: cbc, bep DVT/Prophylaxis: mechanical, pharmacological Sahara Morales MD 04/08/17 1345: Attending Review Statement Attending Statement Attending MD Statement: examined this patient, discuss w/resident/PA/SR RISK MANAGEMENT CONSULTANT, agreed w/resident/PA/SR RISK MANAGEMENT CONSULTANT, reviewed EMR data (avail), discussed with nursing, discussed with case mgmt, reviewed images Attending Assessment/Plan: The patient remains lethargic with periods of awake this and alertness. She is Cymro-speaking and has dementia and response primarily to her son. She has multiple comorbidities including chronic systolic heart failure and left atrial thrombus not on anticoagulation due to very high bleeding risk. I had a very long talk with the patient's son yesterday and she is DNR/DNI. He understands that her prognosis is very poor. He is realistic. He clearly doesn't want a feeding tube as he feels that that would not add any quality to life. He says that she's basically survived on ensure for the past 6 months and that between the aide at home and him, she essentially has 24-hour care and he looks after her very well. He does not want to make a hospice or comfort care as he wants her treated with IV fluids and antibiotics when needed. He doesn't want to make her "do not rehospitalize" but at the same time he doesn't want to follow the recommendations of the speech pathologist as he feels like he's done this before. He wants to try ensure and pudding as he feels that's what she eats and he understands the risks of aspiration specifically given that we are treating an aspiration pneumonia with IV Unasyn. Given that she is becoming hypernatremic and with IV fluids there is a very clear danger of her going into florid heart failure at this point I am going to start a by mouth diet with the ensure as recommended by him and the speech therapist. Obviously I worry that she will aspirate but given that the son is well aware of this and aware that her prognosis is very poor he's willing to take that chance. I'm going to stop the monitor as I don't think we are doing anything from a cardiac perspective.
--- NOTE | 2017-04-08 10:18 | PN- Cardiology ---
Subjective Subjective: The patient is comfortable. No current chest pain or shortness of breath. No palpitations. No diaphoresis. No nausea or vomiting. No lightheadedness or dizziness. Objective Vital Signs and I&Os Vital Signs Date Time Temp Pulse Resp B/P B/P Pulse O2 O2 Flow FiO2 Mean Ox Delivery Rate 04/10 0722 97.0 82 22 112/76 97 Room Air 04/09 2151 96.7 79 22 112/80 95 04/09 1718 97.9 85 22 120/64 94 Room Air 04/09 1452 96.7 76 18 114/72 94 Room Air Intake & Output 04/10 1600 04/10 0800 04/10 0000 04/09 1600 04/09 0800 04/09 0000 Intake Total 10 400 300 450 470 Output Total Balance 10 400 300 450 470 Intake, IV 10 300 450 350 Intake, Oral 0 400 120 Number 0 0 1 Bowel Movements Patient 103 lb 98 lb 8 oz 98 lb 5 oz Weight Weight Bed scale Bed scale Bed scale Measurement Method Physical Exam: Gen: NAD HEENT: normal Lungs: clear to auscultation, normal resp. effort Heart: RRR, S1, S2, 2/6 systolic murmur Abdomen: Soft, nontender, no masses Extremities: No clubbing, cyanosis, or edema. Neuro: Alert and oriented x 3, cranial nerves intact Current Medications: Current Medications Sig/Krzysztof Start time Last Medication Dose Route Stop Time Status Admin Amoxicillin/ 500 MG Q12 04/10 1000 AC Clavulanate Potassium PO Ampicillin Sodium/ 1,500 MG Q12H 04/07 1200 DC 04/10 Sulbactam Sodium IV 0101 Sodium Chloride 100 ML Aspirin 81 MG DAILY 04/08 1000 AC PO Atorvastatin Calcium 40 MG 1700 04/09 1700 AC 04/09 PO 1828 Atorvastatin Calcium 80 MG 1700 04/08 1700 DC 04/08 PO 1734 Dextrose/Water 1,000 ML Q20H 04/08 0930 DC 04/08 IV 1341 Heparin Sodium 5,000 UNIT Q8 04/06 1400 AC 04/10 (Porcine) SC 0516 Patient Medication 1 ED ONE ONE 04/10 0945 DC Teaching ED 04/10 0946 Potassium Chloride 10 MEQ Q1H 04/09 1045 DC IV 04/09 1146 Potassium Chloride 40 MEQ ONCE ONE 04/09 0915 CAN PO 04/09 0916 Rivastigmine 9.5 MG 04/07 04/09 [facility] 2046 Results Last 48 Hrs of Labs/Mics: Laboratory Tests 04/09/17 0630: Anion Gap 12, Estimated GFR 52 L, BUN/Creatinine Ratio 80.0 H, Triglycerides 99, Cholesterol 188, LDL Cholesterol, Calc 142 H, HDL Cholesterol 27 L, Cholesterol/HDL Ratio 7 H, CBC w Diff NO MAN DIFF REQ, RBC 3.57 L, MCV 101.5 H, MCH 32.7 H, MCHC 32.2 L, RDW 17.4 H, MPV 9.4, Gran % 62.9, Lymphocytes % 27.1, Monocytes % 8.5, Eosinophils % 1.0, Basophils % 0.5, Absolute Granulocytes 4.7, Absolute Lymphocytes 2.0, Absolute Monocytes 0.6, Absolute Eosinophils 0.1, Absolute Basophils 0 Assessment/Plan Assessment/Plan Assessment: 1. History of atrial fibrillation, status post pacemaker. Not anticoagulated. Currently in sinus rhythm. 2. History of HFrEF; currently asymptomatic 3. Bilateral pleural effusions 4. History of left ventricular thrombus 5. moderate mitral insufficiency 6. Moderate to severe tricuspid insufficiency with severe pulmonary hypertension 7. macrocytic Anemia 8. Prerenal azotemia 9. Elevated liver function tests Plan: * Continue current cardiac medications * Pacemaker interrogation performed, and reveals that the pacemaker is functioning normally. Continue telemetry? Yes
--- NOTE | 2017-04-08 10:35 | ECHOCARDIOGRAM REPORT ---
ZAINA WU Age: 86 : 1930 Gender: F Exam Date: 04/07/2017 10:32 Exam Location: 1 [address] Ht (in): 60 Wt (lb): 100 BSA: 1.38 BP: 112 / 74 Ordering Physician: Ignacia Fernández MD Referring Physician: Ignacia Fernández MD Technologist: Silvino Garcia [facility] Room Number: 174-1 Indications: SOURCE OF EMBOLUS Rhythm: Sinus rhythm Technical Quality: Fair FINDINGS Left Ventricle Normal left ventricular size. Normal left ventricular wall thickening. Severely reduced global left ventricular systolic function. Global hypokinesis. There appears to be a left ventricular apical thrombus, similar to what was described on the previous echocardiogram. Right Ventricle Normal RV size and systolic function. Pacemaker wire is noted in the right heart. Right Atrium Mild right atrial dilation. Left Atrium Mild left atrial dilation. Mitral Valve Moderate mitral regurgitation. The mitral valve is thickened. Aortic Valve There is diffuse thickening of the aortic valve. No aortic stenosis. Mild aortic regurgitation. Tricuspid Valve Tricuspid valve thickened. Moderate to severe tricuspid regurgitation. RV systolic pressure is severely elevated at 73.9 mmHg. Pulmonic Valve Pulmonic valve not well visualized, grossly normal. Mild tricuspid regurgitation. Pericardium No pericardial effusion. Great Vessels Normal size aortic root. CONCLUSIONS Normal left ventricular size. Normal left ventricular wall thickening. There appears to be a left ventricular apical thrombus, similar to what was described on the previous echocardiogram. Severely reduced global left ventricular systolic function. Global hypokinesis. Normal RV size and systolic function. Pacemaker wire is noted in the right heart. Mild right atrial dilation. Mild left atrial dilation. Moderate mitral regurgitation. Moderate to severe tricuspid regurgitation. RV systolic pressure is severely elevated at 73.9 mmHg. Mild tricuspid regurgitation. Danilo Hinojosa M.D. (Electronically Signed) Final Date: 08 April 2017 10:34 MEASUREMENTS (Male / Female) Normal Values 2D ECHO LV Diastolic Diameter PLAX 4.8 cm 4.2 - 5.9 / 3.9 - 5.3 cm LV Systolic Diameter PLAX 4.3 cm 2.1 - 4.0 cm LV Fractional Shortening PLAX 10.4 % 25 - 46 % LV Ejection Fraction 2D Teich 22.7 % IVS Diastolic Thickness 1.0 cm LVPW Diastolic Thickness 1.0 cm LV Relative Wall Thickness 0.4 RV Internal Dim ED PLAX 3.6 cm 1.9 - 3.8 cm LVOT Diameter 1.8 cm Aortic Root Diameter 2.2 cm LA Systolic Diameter LX 4.2 cm 3.0 - 4.0 / 2.7 - 3.8 cm LA Volume 66.0 cm 18 - 58 / 22 - 52 cm Ascending Aorta Diameter 3.3 cm DOPPLER AV Peak Velocity 110.0 cm/s AV Peak Gradient 4.8 mmHg AV Mean Velocity 66.2 cm/s AV Mean Gradient 2.0 mmHg AV Velocity Time Integral 16.5 cm AI Deceleration Frio 88.7 cm/s AI Peak Velocity 373.0 cm/s AI Pressure Half Time 1233.0 ms AI Peak Gradient 55.7 mmHg LVOT Peak Velocity 42.9 cm/s LVOT Peak Gradient 0.7 mmHg LVOT Mean Velocity 26.8 cm/s LVOT Mean Gradient 0.0 mmHg LVOT Velocity Time Integral 7.8 cm LVOT Stroke Volume 19.9 cm AV Area Cont Eq vti 1.2 cm AV Area Cont Eq pk 1.0 cm MV Peak Velocity 67.4 cm/s MV Peak Gradient 1.8 mmHg MV Mean Velocity 37.9 cm/s MV Mean Gradient 1.0 mmHg Mitral E Point Velocity 57.3 cm/s Mitral A Point Velocity 43.9 cm/s Mitral E to A Ratio 1.3 MV PHT Velocity 68.8 cm/s MV Deceleration Frio 349.0 cm/s MV Pressure Half Time 59.1 ms MV Area PHT 3.7 cm MV Deceleration Time 162.0 ms MR Peak Velocity 445.0 cm/s MR Peak Gradient 79.2 mmHg TR Peak Velocity 415.0 cm/s TR Peak Gradient 68.9 mmHg Right Atrial Pressure 5.0 mmHg Pulmonary Artery Systolic Pressu 73.9 mmHg Right Ventricular Systolic Press 73.9 mmHg PV Peak Velocity 65.0 cm/s PV Peak Gradient 1.7 mmHg PV Mean Velocity 43.7 cm/s PV Mean Gradient 1.0 mmHg PV Velocity Time Integral 12.4 cm
[2017-04-08 13:51] VITALS: BP 110/58
--- NOTE | 2017-04-08 15:29 | Cons- Gastroenterology ---
General Information and HPI Consulting Request Date of Consult: 04/08/17 Requested By: Sahara Morales MD Reason for Consult: 1. Abnormal Liver-Associated Enzymes 2. ? Pancreatitis Source of Information: Electronic Medical Records Exam Limitations: unable to give history, dementia History of Present Illness: Patient is an 86-year-old Swedish-speaking female who is demented. History is obtained from the chart. Patient was admitted to [facility] with a report of decreased oral intake and decreased ability to perform ADL. Patient had previously according to patient's son been previously ambulatory with a walker however in recent weeks had been unable to do that. We are consulted for evaluation of possible pancreatitis. Per the medical house staff patient had appear to have some abdominal pain. There is also some question regarding an ultrasound which they believe may have suggested that the patient had pancreatitis. I have reviewed the abdominal US which is as follows: FINDINGS: PANCREAS: The visualized portion of the pancreatic body appears hyperechoic with no focal lesion. ABDOMINAL AORTA: The proximal segment is normal in caliber. INFERIOR VENA CAVA: Visualized portions are normal. LIVER: Normal. The liver demonstrates normal size, contour and echogenicity. No focal lesion or intrahepatic biliary duct dilatation. GALLBLADDER: Status post cholecystectomy. COMMON BILE DUCT: Normal in caliber measuring 0.5 cm in diameter. RIGHT KIDNEY: Somewhat small in size. No hydronephrosis. No renal calculi or focal parenchymal lesions. The kidney measures 7.7 cm in maximum dimension. LEFT KIDNEY: Somewhat small in size. There is mild fullness of the renal pelvis. No significant hydronephrosis. No renal calculi or focal parenchymal lesions. The kidney measures 7.9 cm in maximum dimension. SPLEEN: Normal. The spleen measures 5.8 cm in maximum dimension. FREE FLUID: Small volume ascites. IMPRESSION: Hyperechoic appearance of the pancreatic parenchyma. Correlate for pancreatitis. No focal pancreatic lesion. Unremarkable appearance of the liver. No biliary ductal dilatation. Patient also had a CT Scan of the abdomen and pelvis on admission, the results of whicha re as follows: FINDINGS: LUNG BASES: Small to moderate bilateral pleural effusions with bibasilar opacities are noted. The heart is enlarged. Cardiac pacer leads noted. Coronary artery calcifications. LIVER, GALLBLADDER, AND BILIARY TREE: The liver is normal in size, shape, and attenuation. No focal hepatic lesion or biliary ductal dilatation is present. Trace perihepatic ascites, similar to previous. Cholecystectomy. PANCREAS: Mild fatty atrophy of the pancreas with no focal parenchymal abnormality. SPLEEN: Unremarkable. ADRENAL GLANDS: Unremarkable. KIDNEYS AND URETERS: The kidneys are normal in size, shape, and attenuation. No hydronephrosis, hydroureter, or calculi seen. No perinephric stranding. BLADDER: Unremarkable. GASTROINTESTINAL TRACT: The stomach is decompressed with no gross abnormality. The small bowel is normal in caliber. No obstruction. Normal appendix. No colonic wall thickening or inflammatory change. A majority of the colon is also decompressed. There is sigmoid diverticulosis without diverticulitis. No free air. Small amount of pelvic free fluid. ABDOMINAL WALL: No significant hernia is appreciated. Mild anasarca. LYMPH NODES: Normal. VASCULAR: Normal caliber aorta with moderate atherosclerotic calcifications. PELVIC VISCERA: Calcifications of the uterus likely representing small fibroids. No adnexal mass. OSSEOUS STRUCTURES: No acute or suspicious osseous abnormality. Mild anterior wedge compression deformity of the T11 vertebral body is unchanged. Hardware within the left femur is again noted. Degenerative changes of both hips. IMPRESSION: No acute findings in the abdomen or pelvis. No inflammatory changes. Small volume of ascites, similar to previous. Small to moderate bilateral pleural effusions are also similar to prior CT. The patient had an amylase and lipase that were normal. Alkaline Phosphatase was elevated at 170, AST/ALT was 60/82 and Total Bilirubin was 1.5 with Direct Bilirubin being 0.6. The patient is currently being seen by [facility] and they report that her last echocardiogram is as follows: Severely reduced global left ventricular ejection fraction 20-25% and left ventricular apical thrombus in addition to tricuspid insufficiency and mitral insufficiency, severe pulmonary hypertension and right ventricular systolic pressure of 17 mmHg. Allergies/Medications Allergies: Coded Allergies: NO KNOWN ALLERGIES (03/12/13) Home Med List: Furosemide 20 MG TABLET 1 TAB PO DAILY PRN Fluid Overload (Reported) Rivastigmine (Exelon) 9.5 MG/Patch PAT 1 PAT TOP DAILY DEMENTIA (Reported) Current Medications: Current Medications Sig/Krzysztof Start time Last Medication Dose Route Stop Time Status Admin Ampicillin Sodium/ 1,500 MG Q12H 04/07 1200 AC 04/08 Sulbactam Sodium IV 1335 Sodium Chloride 100 ML Aspirin 81 MG DAILY 04/08 1000 AC PO Atorvastatin Calcium 80 MG 1700 04/08 1700 AC PO Dextrose/Sodium 1,000 ML Q20H 04/08 0845 DC Chloride IV Dextrose/Sodium 1,000 ML Q20H 04/07 1545 DC 04/07 Chloride IV 1620 Dextrose/Water 1,000 ML Q20H 04/08 0930 AC 04/08 IV 1341 Heparin Sodium 5,000 UNIT Q8 04/06 1400 AC 04/08 (Porcine) SC 1344 Lactated Ringer's 1,000 ML Q13H 04/08 0745 DC 04/08 IV 0805 Rivastigmine 9.5 MG 04/07 04/07 TOP 2057 Sodium Chloride 1,000 ML Q20H 04/07 1545 CAN IV Past History Travel History Traveled to [place] past 21 day No Medical History Blood Transfusion Hx: No Neurological: dementia EENT: NONE Cardiovascular: hypertension, pacemaker Respiratory: CHRONIC COUGH Gastrointestinal: NONE Hepatic: NONE Renal: UTI Musculoskeletal: NONE, PELVIC FX Psychiatric: depression Endocrine: NONE Blood Disorders: NONE Cancer(s): breast cancer PACKAGE LINE OPERATOR/Reproductive: NONE Surgical History Surgical History: mastectomy left side HIP REPAIR Family History Relations & Conditions If Any: Relation not specified for: *No pertinent family history Psychosocial History Where Do You Live? Home Services at Home: None Smoking Status: Never Smoked Review of Systems Review of Systems: Unable to obtain. Exam & Diagnostic Data Vital Signs and I&O Vital Signs Date Time Temp Pulse Resp B/P B/P Pulse O2 O2 Flow FiO2 Mean Ox Delivery Rate 04/08 1351 97.3 81 18 110/58 96 04/08 0800 96 Room Air 04/08 0633 97.0 78 20 98 Room Air 04/07 2224 96.0 73 20 108/72 94 04/07 1600 Room Air Intake & Output 04/08 1600 04/08 0400 04/07 1600 04/07 0400 04/06 1600 04/06 0400 Intake Total 800 200 315 546 7330 Output Total 1 50 Balance 800 200 419 615 3200 -50 Intake, IV 800 200 100 494 6692 Intake, Oral 0 120 Number 1 1 Bowel Movements Output, Stool 1 Output, Urine 50 Patient 100 lb 100 lb Weight Weight Bed scale Measurement Method Physical Exam General Appearance: no apparent distress, thin Head: atraumatic, normal appearance Eyes: Bilateral: normal appearance. Neck: normal inspection, supple, full range of motion Respiratory: no respiratory distress, lungs clear Cardiovascular: regular rate/rhythm, murmur Gastrointestinal: normal bowel sounds, soft, non-tender, no organomegaly Extremities: normal inspection Neurologic/Psych: awake, alert, patient is demented and nonverbal Skin: intact, normal color, warm/dry Results Pertinent Lab Results: Laboratory Tests 04/08 04/08 04/07 0732 0633 1205 Chemistry Sodium (137 - 145 mmol/L) 151 H Cancelled Potassium (3.5 - 5.1 mmol/L) 4.2 Cancelled Chloride (98 - 107 mmol/L) 117 H Cancelled Carbon Dioxide (22 - 30 mmol/L) 17 L Cancelled Anion Gap (5 - 16) 16 Cancelled BUN (7 - 17 mg/dL) 91 H Cancelled Creatinine (0.5 - 1.0 mg/dL) 1.1 H Cancelled Estimated GFR (>60 ml/min) 47 L BUN/Creatinine Ratio (7 - 25 %) 82.7 H Cancelled Total Bilirubin (0.2 - 1.3 mg/dL) 1.5 H Cancelled Direct Bilirubin (< 0.4 mg/dL) 0.6 H Cancelled AST (14 - 36 U/L) 60 H Cancelled ALT (9 - 52 U/L) 82 H Cancelled Alkaline Phosphatase (<127 U/L) 170 H Cancelled Total Protein (6.3 - 8.2 g/dL) 6.0 L Cancelled Albumin (3.5 - 5.0 g/dL) 2.8 L Cancelled Amylase (30 - 110 U/L) 39 Lipase (23 - 300 U/L) Cancelled 127 Hematology CBC w Diff NO MAN DIFF REQ WBC (4.8 - 10.8 /CUMM) 8.5 RBC (4.20 - 5.40 /CUMM) 3.51 L Hgb (12.0 - 16.0 G/DL) 11.5 L Hct (37 - 47 %) 35.6 L MCV (81.0 - 99.0 FL) 101.5 H MCH (27.0 - 31.0 PG) 32.9 H MCHC (33.0 - 37.0 G/DL) 32.4 L RDW (11.5 - 14.5 %) 17.3 H Plt Count (130 - 400 /CUMM) 120 L MPV (7.4 - 10.4 FL) 9.7 Gran % (42.2 - 75.2 %) 65.3 Lymphocytes % (20.5 - 51.1 %) 26.1 Monocytes % (1.7 - 9.3 %) 7.8 Eosinophils % (0 - 5 %) 0.4 Basophils % (0.0 - 2.0 %) 0.4 Absolute Granulocytes (1.4 - 6.5 /CUMM) 5.6 Absolute Lymphocytes (1.2 - 3.4 /CUMM) 2.2 Absolute Monocytes (0.10 - 0.60 /CUMM) 0.7 H Absolute Eosinophils (0.0 - 0.7 /CUMM) 0 Absolute Basophils (0.0 - 0.2 /CUMM) 0 04/07 04/07 04/07 1205 0753 0500 Chemistry Sodium (137 - 145 mmol/L) 153 H Cancelled Potassium (3.5 - 5.1 mmol/L) 4.5 Cancelled Chloride (98 - 107 mmol/L) 118 H Cancelled Carbon Dioxide (22 - 30 mmol/L) 16 L Cancelled Anion Gap (5 - 16) 19 H Cancelled BUN (7 - 17 mg/dL) 94 H Cancelled Creatinine (0.5 - 1.0 mg/dL) 1.2 H Cancelled Estimated GFR (>60 ml/min) 42 L BUN/Creatinine Ratio (7 - 25 %) 78.3 H Cancelled Total Bilirubin (0.2 - 1.3 mg/dL) 1.9 H Cancelled Direct Bilirubin (< 0.4 mg/dL) 0.8 H Cancelled AST (14 - 36 U/L) 67 H Cancelled ALT (9 - 52 U/L) 79 H Cancelled Alkaline Phosphatase (<127 U/L) 194 H Cancelled Troponin I (< 0.11 ng/ml) 0.02 [id number] Pept (<125 pg/mL) 16449 H Total Protein (6.3 - 8.2 g/dL) 6.4 Cancelled Albumin (3.5 - 5.0 g/dL) 3.1 L Cancelled Hematology CBC w Diff NO MAN DIFF REQ Cancelled WBC (4.8 - 10.8 /CUMM) 9.4 Cancelled RBC (4.20 - 5.40 /CUMM) 3.65 L Cancelled Hgb (12.0 - 16.0 G/DL) 12.0 Cancelled Hct (37 - 47 %) 36.6 L Cancelled MCV (81.0 - 99.0 FL) 100.5 H Cancelled MCH (27.0 - 31.0 PG) 32.9 H Cancelled MCHC (33.0 - 37.0 G/DL) 32.8 L Cancelled RDW (11.5 - 14.5 %) 17.2 H Cancelled Plt Count (130 - 400 /CUMM) 108 L Cancelled MPV (7.4 - 10.4 FL) 10.0 Cancelled Gran % (42.2 - 75.2 %) 72.2 Lymphocytes % (20.5 - 51.1 %) 19.4 L Monocytes % (1.7 - 9.3 %) 8.0 Eosinophils % (0 - 5 %) 0 Basophils % (0.0 - 2.0 %) 0.4 Absolute Granulocytes (1.4 - 6.5 /CUMM) 6.8 H Absolute Lymphocytes (1.2 - 3.4 /CUMM) 1.8 Absolute Monocytes (0.10 - 0.60 /CUMM) 0.7 H Absolute Eosinophils (0.0 - 0.7 /CUMM) 0 Absolute Basophils (0.0 - 0.2 /CUMM) 0 04/07 04/06 04/06 0100 1850 0320 Chemistry Troponin I (< 0.11 ng/ml) 0.04 0.03 Toxicology Urine Opiates Screen (>2000 NG/ML) < 100.00 Methadone Screen (>300 NG/ML) < 40 Barbiturate Screen (>200 NG/ML) < 60 Ur Phencyclidine Scrn (>25 NG/ML) < 6.00 Amphetamines Screen (>1000 NG/ML) < 100 U Benzodiazepines Scrn (>200 NG/ML) < 85 Urine Cocaine Screen (>300 NG/ML) < 50 Urine Cannabis Screen (>50 NG/ML) < 5.00 Urines Urinalysis MOD H Urine Color (YEL,AMB,STR) MARLO Urine Clarity (CLEAR) CLEAR Urine pH (5.0 - 8.0) 6.0 Ur Specific [place] (1.001 - 1.035) >= 1.030 Urine Protein (NEG,<30 MG/DL) TRACE H Urine Ketones (NEG) NEG Urine Nitrite (NEG) NEG Urine Bilirubin (NEG) NEG Urine Urobilinogen (0.1 - 1.0 EU/dl) 1.0 Ur Leukocyte Esterase (NEG) NEG Ur Microscopic SEDIMENT EXAMINED Urine RBC (0 - 5 /HPF) 3-5 Urine WBC (0 - 2 /HPF) RARE Ur Epithelial Cells (NONE,FEW) FEW Urine Bacteria (NEG/NONE) FEW H Hyaline Casts (0/LPF) RARE H Urine Mucus (FEW,NONE) FEW Urine Hemoglobin (NEG) TRACE-INTACT Urine Glucose (N MG/DL) NEG 04/06 0300 Chemistry Sodium (137 - 145 mmol/L) 145 Potassium (3.5 - 5.1 mmol/L) 4.9 Chloride (98 - 107 mmol/L) 111 H Carbon Dioxide (22 - 30 mmol/L) 19 L Anion Gap (5 - 16) 15 BUN (7 - 17 mg/dL) 88 H Creatinine (0.5 - 1.0 mg/dL) 1.0 Estimated GFR (>60 ml/min) 52 L BUN/Creatinine Ratio (7 - 25 %) 88.0 H Glucose (65 - 99 mg/dL) 121 H Calcium (8.4 - 10.2 mg/dL) 8.6 Phosphorus (2.5 - 4.5 mg/dL) 4.9 H Magnesium (1.6 - 2.3 mg/dL) 2.5 H Total Bilirubin (0.2 - 1.3 mg/dL) 1.2 AST (14 - 36 U/L) 52 H ALT (9 - 52 U/L) 69 H Alkaline Phosphatase (<127 U/L) 158 H Troponin I (< 0.11 ng/ml) 0.02 Total Protein (6.3 - 8.2 g/dL) 6.6 Albumin (3.5 - 5.0 g/dL) 3.3 L Globulin (1.9 - 4.2 gm/dL) 3.3 Albumin/Globulin Ratio (1.1 - 2.2 %) 1.0 L Vitamin B12 (239 - 931 pg/mL) > 1000 H Folate (2.76 - 20.0 ng/mL) > 20.0 H TSH (0.270 - 4.200 uIU/mL) 1.740 Thyroxine (T4) (4.5 - 10.9 ug/dL) 6.1 Free T3 (2.34 - 5.61 pg/mL) 2.3 L Thyroxine Binding Indx (23.5 - 40.5 % UPTAKE) 48.4 H Hematology CBC w Diff NO MAN DIFF REQ WBC (4.8 - 10.8 /CUMM) 10.5 RBC (4.20 - 5.40 /CUMM) 3.50 L Hgb (12.0 - 16.0 G/DL) 11.4 L Hct (37 - 47 %) 35.3 L MCV (81.0 - 99.0 FL) 100.9 H MCH (27.0 - 31.0 PG) 32.6 H MCHC (33.0 - 37.0 G/DL) 32.3 L RDW (11.5 - 14.5 %) 16.8 H Plt Count (130 - 400 /CUMM) 101 L MPV (7.4 - 10.4 FL) 9.7 Gran % (42.2 - 75.2 %) 72.3 Lymphocytes % (20.5 - 51.1 %) 18.7 L Monocytes % (1.7 - 9.3 %) 8.5 Eosinophils % (0 - 5 %) 0.3 Basophils % (0.0 - 2.0 %) 0.2 Absolute Granulocytes (1.4 - 6.5 /CUMM) 7.6 H Absolute Lymphocytes (1.2 - 3.4 /CUMM) 2.0 Absolute Monocytes (0.10 - 0.60 /CUMM) 0.9 H Absolute Eosinophils (0.0 - 0.7 /CUMM) 0 Absolute Basophils (0.0 - 0.2 /CUMM) 0 Toxicology Serum Alcohol (<10 MG/DL) < 10.0 Assessment/Plan Assessment/Recommendations: ASSESSMENT: 1. Elevated Transaminases, alkaline phosphatase and Indirect Bilirubin. I suspect this is due to tricuspid regurgitation, congestive hepatopathy, medications, as well as some contribution from osteopenia/osteoporosis. This is likely multifactorial, however, elevations are trivial and do not warrant any change in current therapy. 2. Atrophy of Pancreatic Head -- but no evidence of pancreatitis. This is a phenomenon that can be seen with aging. There is no evidence of acute pancreatitis. Amylase and lipase are both normal 3. ? Abdominal Pain -- by my exam patient appears comfortable. Patient may have transmitted pain due to irritation of the diaphragm in the setting of pneumonia. Patient may also have stretching of the liver capsule in the setting of right-sided heart failure. 4. Dementia 5. DNR/DNI 6/ Cardiomyopathy with LV thrombus. RECOMMENDATIONS: 1. Would encourage hospice consultation 2. I would not change current management. I believe her GI problems are secondary to her cardiac problems. 3. GI will sign off for now. We have nothing to offer this patient however should the need arise please do not hesitate contact us. Consult Acknowledgment - Thank you for your consult request.
[2017-04-08 22:08] VITALS: BP 118/70
[2017-04-09 06:34] VITALS: BP 116/70
[2017-04-09 08:19] LABS: ABSOLUTE BASOPHIL COUNT 0 /CUMM (0.0-0.2); ABSOLUTE EOSINOPHIL COUNT 0.1 /CUMM (0.0-0.7); ABSOLUTE GRANULOCYTE CT 4.7 /CUMM (1.4-6.5); ABSOLUTE MONOCYTE COUNT 0.6 /CUMM (0.10-0.60); BASOPHIL % 0.5 % (0.0-2.0); GRANULOCYTE % 62.9 % (42.2-75.2); HEMATOCRIT 36.2 % (37-47); MEAN CORPUSCULAR HGB 32.7 PG (27.0-31.0); MEAN CORPUSCULAR HGB CONC 32.2 G/DL (33.0-37.0); MEAN CORPUSCULAR VOLUME 101.5 FL (81.0-99.0); MEAN PLATELET VOLUME 9.4 FL (7.4-10.4); RBC DISTRIBUTION WIDTH 17.4 % (11.5-14.5); RED BLOOD CELL CT 3.57 /CUMM (4.20-5.40); WHITE BLOOD CELL COUNT 7.5 /CUMM (4.8-10.8)
[2017-04-09 09:10] LABS: PLATELET COUNT 81 /CUMM (130-400)
--- NOTE | 2017-04-09 09:45 | PN- Housestaff ---
Kareem,[facility] 04/09/17 0944: Subjective Follow-up For: -AMS -HEART FAILURE -A.FIB S/P PACEMAKER, APICAL THROMUS -FAILURE TO THRIVE -ASPIRATION Complaints: no complaints Tele-Events Since Last Visit: SR Subjective: Patient seen and examined, lying in the bed with moderate distress secondary to work of breathing, she denies any pain she is able to mention that no pain. Her vitals were stable Review of Systems Constitutional: Reports: no symptoms. EENTM: Reports: no symptoms. Cardiovascular: Reports: no symptoms. Respiratory: Reports: short of breath. Gastrointestinal: Reports: no symptoms. Genitourinary: Reports: no symptoms. Musculoskeletal: Reports: no symptoms. Objective Last 24 Hrs of Vital Signs/I&O Vital Signs Date Time Temp Pulse Resp B/P B/P Pulse O2 O2 Flow FiO2 Mean Ox Delivery Rate 04/09 0634 97.2 71 18 116/70 97 Room Air 04/08 2208 96.1 88 18 118/70 97 Room Air 04/08 1351 97.3 81 18 110/58 96 Intake & Output 04/09 1600 04/09 0800 04/09 0000 Intake Total 450 470 Output Total Balance 450 470 Intake, IV 450 350 Intake, Oral 120 Number 1 Bowel Movements Patient 98 lb 8 oz 98 lb 5 oz Weight Weight Bed scale Bed scale Measurement Method Physical Exam General Appearance: Alert, Moderate Distress Skin: No Rashes, No Breakdown HEENT: Atraumatic, PERRLA, EOMI (A), Mucous Membr. 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 Extremities: No Edema, Normal Pulses Vascular: Normal Pulses, Pulses Symmetrical (DECREASE AIR ENTRY BILATERAL W) Current Medications: Current Medications Sig/Krzysztof Start time Last Medication Dose Route Stop Time Status Admin Ampicillin Sodium/ 1,500 MG Q12H 04/07 1200 AC 04/08 Sulbactam Sodium IV 2348 Sodium Chloride 100 ML Aspirin 81 MG DAILY 04/08 1000 AC PO Atorvastatin Calcium 80 MG 1700 04/08 1700 AC 04/08 PO 1734 Cyanocobalamin 250 MCG DAILY 04/08 1532 DC PO Dextrose/Water 1,000 ML Q20H 04/08 0930 AC 04/08 IV 1341 Folic Acid 1 MG DAILY 04/08 1530 CAN IV Heparin Sodium 5,000 UNIT Q8 04/06 1400 AC 04/09 (Porcine) SC 0552 Potassium Chloride 40 MEQ ONCE ONE 04/09 0915 DC PO 04/09 0916 Rivastigmine 9.5 MG 04/07 TOP 1955 Last 24 Hrs of Lab/Ncik Results Last 24 Hrs of Labs/Mics: Laboratory Tests 04/09/17 0630: Anion Gap 12, Estimated GFR 52 L, BUN/Creatinine Ratio 80.0 H, CBC w Diff NO MAN DIFF REQ, RBC 3.57 L, MCV 101.5 H, MCH 32.7 H, MCHC 32.2 L, RDW 17.4 H, MPV 9.4, Gran % 62.9, Lymphocytes % 27.1, Monocytes % 8.5, Eosinophils % 1.0, Basophils % 0.5, Absolute Granulocytes 4.7, Absolute Lymphocytes 2.0, Absolute Monocytes 0.6, Absolute Eosinophils 0.1, Absolute Basophils 0 Assessment/Plan Assessment: #Altered mental status: Which could be related to infectious etiology, or neurological events #Aspiration pneumonia: * Will continue tele monitoring * Continue IV Unasyn, * Swallow eval today * Gentle IV hydration @ rate of 50ml/h until diet is ordered. Will change IV fluids today to D5W as the patient has hypernatremia which improved today to 151 after changing her fluid yesterday to D5 half normal saline, yesterday to was 153 * Her pacemaker is incombatible with MRI, so we couldn't proceed with MRI brain #A. Fib s/p pacemaker in the setting of apical thrombus, HF on previous echo with EF 20% * Currently on sinus rhythm * Attending on the last admission wrote on the discharge summary that: I did discuss the echo finding wit her PCP Dr Adarsh Vieira and her door frame builder Dr Alek Sewell today. 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 According to her door frame builder she was on anticoagulation in the past but this was stopped due to bleding and falls. He stated that due to her advanced dementia he and the son had agreed jean claude further testing and interventions. The patient's door frame builder had recommended hospice care to the son. * The patient was not taking any medication at home, even though she was prescribed metoprolol and amlodipine during the last month. * Patient was seen by today, no need to Intorregate the pacemaker given her age and comorbidities. The case discussed with the son who want to take his mom home. #Dehydration with elevated BUN * Patient is more awake no, she still have elevated BUN. She is eats thickened diet but she chokes multiple times. * Hypernatremia improved, will dc IV fluid per attending as the patient has diastolic HF with EF of 20% * #Transaminitis * LFTs slightly elevated, I discussed with Dr. Maher who thinks that her liver May Be Stretched and Causing the Pain and Dilated with Elevated AST ALT and Alkaline Phosphatase, we cannot start her on famotidine and she is nothing by mouth secondary to her the risk of aspiration #Pancreatitis on abdominal ultrasound: I discussed with Dr. Maher, ultrasound is not a good study to assess pancreatitis patient had CAT scan abdomen the day before yesterday and it was normal, her amylase and lipase is within normal limits. #B/L moderate pleural effusion: * Most likely related to heart failure with low EF #Failure to thrive: * Will place neutritional consult. * She failed swallow eval. today, will repeat that tomorrow #Hx. of hypertension * Will hold on BP meds -Nothing by mouth -DVT PPX: Subcutaneous heparin DNR/DNI She is DNR/DNI but the son is not interested in hospice care here or hospice care at home. She has very poor by mouth intake and he's been managing her with a can of ensure 3 times a day and he feels that's what kept her nutritional and hydration status well up to this point. The nurses feel that when they feed her she chokes but the son is able to feed her without her choking and she does respond to the son. Problem List: 1. Heart failure 2. Anemia 3. Elevated BUN 4. Hypernatremia Pain Ratin Pain Location: - Pain Goal: Remain pain free Pain Plan: - Tomorrow's Labs & Rationales: BEP, CBC DVT/Prophylaxis: Sahara Whitfield MD 04/09/17 1126: Attending MD Review Statement Attending Statement Attending MD Statement: examined this patient, discuss w/resident/PA/PAYMENT COLLECTOR, agreed w/resident/PA/PAYMENT COLLECTOR, discussed with family, reviewed EMR data (avail), discussed with nursing, discussed with case mgmt, reviewed images Attending Assessment/Plan: I sat down and spoke to the patient's son at length again today. The disease case manager rn was also with me. This is an 86-year-old [place]ayan-speaking female with advanced dementia who was 24/7 care arranged privately at home. She has very advanced systolic heart failure with globally reduced wall motions and severely reduced EF. She also has a Cardiac thrombus that has not been anticoagulated as she is very high risk for bleeding and falls. She is DNR/DNI but the son is not interested in hospice care here or hospice care at home. She has very poor by mouth intake and he's been managing her with a can of ensure 3 times a day and he feels that's what kept her nutritional and hydration status well up to this point. The nurses feel that when they feed her she chokes but the son is able to feed her without her choking and she does respond to the son. We gave her fluids briefly for hypernatremia but we are very very diligent with the fluids because of the chronic systolic heart failure with a low EF and elevated BNP. We are treating her with IV Unasyn for presumed aspiration pneumonia which we'll transition to by mouth antibiotics in a.m. The son is going to take her home tomorrow and we will arrange medical transportation for the same. He understands that her prognosis is extremely poor. If she continues to deteriorate at home which I suspect she will, he will then let her at home in peace and will not bring her back for the hospitalization. If she improves and her by mouth intake improves and she does well and stays out of the hospital for a few months then he plans to bring her back in as he wants treatment with fluids and antibiotics but no heroics. Total time spent with the family was 38 minutes.
[2017-04-09] MEDS ORDERED: ASPIRIN81 M4 PO (10:43)
--- NOTE | 2017-04-09 10:44 | Patient Discharge Instructions ---
Discharge Instructions General Discharge Information You were seen/treated for: -Altererd mental status 2/2 dehydration -Aspiration pneumonia Special Instructions: -Follow up with your primary care physician after discharge -Take your medications as prescribed Diet Recommended Diet: HIGH RISK OF ASPIRATION Acute Coronary Syndrome Inclusion Criteria At DC or during hospital stay patient has or had the following: ACS DIAGNOSIS No Discharge Core Measures Meds if any: Prescribed or Continued at Discharge Meds if any: NOT Prescribed or Continued at Discharge Congestive Heart Failure Inclusion Criteria At DC or during hospital stay patient has or had the following: CHF DIAGNOSIS No Discharge Core Measures Meds if any: Prescribed or Continued at Discharge Meds if any: NOT Prescribed or Continued at Discharge Cerebrovascular accident Inclusion Criteria At DC or during hospital stay patient has or had the following: CVA/TIA Diagnosis No Discharge Core Measures Meds if any: Prescribed or Continued at Discharge Meds if any: NOT Prescribed or Continued at Discharge Venous thromboembolism Inclusion Criteria VTE Diagnosis No VTE Type NONE VTE Confirmed by (Test) NONE Discharge Core Measures - Per Current guidelines, there needs to be overlap - treatment for the first 5 days of Warfarin therapy. - If discharged on Warfarin prior to 5 days of - overlap therapy, the patient will need to be - assessed for post discharge needs including - *Post discharge parental anticoagulation - *Warfarin and/or parental anticoagulation education - *Follow up date to check INR post discharge At least 5 days overlap therapy as Inpatient No Meds if any: Prescribed or Continued at Discharge Note: Overlap Therapy is Warfarin and Anticoagulant Meds if any: NOT Prescribed or Continued at Discharge
--- NOTE | 2017-04-09 10:44 | Discharge Summary ---
Hospital Course Allergies: Coded Allergies: NO KNOWN ALLERGIES (03/12/13) Discharge Instructions Medications at Discharge Discharge Medications: Start taking the following new medications: Aspirin (Aspirin*) 81 MG TAB.CHEW 81 Milligram ORAL DAILY Qty = 30 No Refills Comments: NOT GIVEN IN HOSPITAL Atorvastatin Calcium (Atorvastatin Calcium) 40 MG TABLET 40 Milligram ORAL 5 PM Qty = 30 No Refills Comments: Last Taken: 04/09/17 Time: 6:30 PM Amoxicillin/Potassium Clav (Augmentin 875-125 Tablet) 875 MG-125 MG TABLET 1 Tablet ORAL TWICE DAILY Qty = 8 No Refills Comments: NOT GIVEN IN HOSPITAL
--- NOTE | 2017-04-09 11:39 | Discharge Summary ---
Hospital Course Allergies: Coded Allergies: NO KNOWN ALLERGIES (03/12/13) Discharge Instructions Medications at Discharge Discharge Medications: Continue taking these medications: Rivastigmine (Exelon) 9.5 MG/Patch PAT 1 Patch On the skin DAILY Comments: Last Taken: 10/03/16 Time: 8:15 AM Furosemide (Furosemide) 20 MG TABLET 1 Tablet ORAL DAILY as needed for Fluid Overload Comments: NOT GIVEN Start taking the following new medications: Aspirin (Aspirin*) 81 MG TAB.CHEW 81 Milligram ORAL DAILY Qty = 30 No Refills Atorvastatin Calcium (Atorvastatin Calcium) 40 MG TABLET 40 Milligram ORAL 5 PM Qty = 30 No Refills Amoxicillin/Potassium Clav (Augmentin 875-125 Tablet) 875 MG-125 MG TABLET 1 Tablet ORAL TWICE DAILY Qty = 8 No Refills
--- NOTE | 2017-04-09 12:48 | PN- Cardiology ---
Subjective Subjective: no significant clinical change. Currently off of courtroom reporter Objective Vital Signs and I&Os Vital Signs Date Time Temp Pulse Resp B/P B/P Pulse O2 O2 Flow FiO2 Mean Ox Delivery Rate 04/09 0634 97.2 71 18 116/70 97 Room Air 04/08 2208 96.1 88 18 118/70 97 Room Air 04/08 1351 97.3 81 18 110/58 96 Intake & Output 04/09 1600 04/09 0800 04/09 0000 04/08 1600 04/08 0800 04/08 0000 Intake Total 450 470 400 400 200 Output Total Balance 450 470 400 400 200 Intake, IV 450 350 400 400 200 Intake, Oral 120 0 Number 1 Bowel Movements Patient 98 lb 8 oz 98 lb 5 oz Weight Weight Bed scale Bed scale Measurement Method Current Medications: Current Medications Sig/Krzysztof Start time Last Medication Dose Route Stop Time Status Admin Ampicillin Sodium/ 1,500 MG Q12H 04/07 1200 AC 04/09 Sulbactam Sodium IV 1141 Sodium Chloride 100 ML Aspirin 81 MG DAILY 04/08 1000 AC PO Atorvastatin Calcium 40 MG 1700 04/09 1700 AC PO Atorvastatin Calcium 80 MG 1700 04/08 1700 DC 04/08 PO 1734 Cyanocobalamin 250 MCG DAILY 04/08 1532 DC PO Dextrose/Water 1,000 ML Q20H 04/08 0930 DC 04/08 IV 1341 Folic Acid 1 MG DAILY 04/08 1530 CAN IV Heparin Sodium 5,000 UNIT Q8 04/06 1400 AC 04/09 (Porcine) [place] 0552 Potassium Chloride 10 MEQ Q1H 04/09 1045 DC IV 04/09 1146 Potassium Chloride 40 MEQ ONCE ONE 04/09 0915 CAN PO 04/09 0916 Rivastigmine 9.5 MG 04/07 04/08 [facility] 1955 Results Last 48 Hrs of Labs/Mics: Laboratory Tests 04/09/17 0630: Anion Gap 12, Estimated GFR 52 L, BUN/Creatinine Ratio 80.0 H, Triglycerides 99, Cholesterol 188, LDL Cholesterol, Calc 142 H, HDL Cholesterol 27 L, Cholesterol/HDL Ratio 7 H, CBC w Diff NO MAN DIFF REQ, RBC 3.57 L, MCV 101.5 H, MCH 32.7 H, MCHC 32.2 L, RDW 17.4 H, MPV 9.4, Gran % 62.9, Lymphocytes % 27.1, Monocytes % 8.5, Eosinophils % 1.0, Basophils % 0.5, Absolute Granulocytes 4.7, Absolute Lymphocytes 2.0, Absolute Monocytes 0.6, Absolute Eosinophils 0.1, Absolute Basophils 0 04/08/17 0732: Lipase Cancelled 04/08/17 0633: Anion Gap 16, Estimated GFR 47 L, BUN/Creatinine Ratio 82.7 H, Total Bilirubin 1.5 H, Direct Bilirubin 0.6 H, AST 60 H, ALT 82 H, Alkaline Phosphatase 170 H, Total Protein 6.0 L, Albumin 2.8 L, Amylase 39, Lipase 127, Vitamin B12 > 1000 H, Folate > 20.0 H, CBC w Diff NO MAN DIFF REQ, RBC 3.51 L, MCV 101.5 H , MCH 32.9 H, MCHC 32.4 L, RDW 17.3 H, MPV 9.7, Gran % 65.3, Lymphocytes % 26.1, Monocytes % 7.8, Eosinophils % 0.4, Basophils % 0.4, Absolute Granulocytes 5.6, Absolute Lymphocytes 2.2, Absolute Monocytes 0.7 H, Absolute Eosinophils 0 , Absolute Basophils 0 Assessment/Plan Assessment/Plan Assessment: 1. History of atrial fibrillation, status post pacemaker. Not anticoagulated. Currently in sinus rhythm. 2. History of HFrEF; currently asymptomatic 3. Bilateral pleural effusions 4. History of left ventricular thrombus 5. moderate mitral insufficiency 6. Moderate to severe tricuspid insufficiency with severe pulmonary hypertension 7. macrocytic Anemia 8. Prerenal azotemia 9. Elevated liver function tests Recommendations: -Review of the patient's age, comorbidities, etc., there does not appear to be any plan for further cardiac intervention, medication, etc. In view of this fact, I believe that further discussions with the patient's family about long- term goals of care should be pursued and for now, do not see any necessity for pacemaker interrogation. -This was discussed between Dr. Castelan and the patient's family. -Otherwise, continue as per the medical team. Continue telemetry? No
[2017-04-09] MEDS ORDERED: ATORVASTATIN CA40 M1 PO (14:25)
[2017-04-09] MEDS ORDERED: AUGMENTIN 875-1 EACH PO (14:27)
[2017-04-09 14:52] VITALS: BP 114/72
[2017-04-09 17:18] VITALS: BP 120/64
[2017-04-09 21:51] VITALS: BP 112/80
[2017-04-10 07:22] VITALS: BP 112/76
--- NOTE | 2017-04-10 09:46 | PN- Housestaff ---
Subjective Follow-up For: -AMS -HEART FAILURE -A.FIB S/P PACEMAKER, APICAL THROMUS -FAILURE TO THRIVE -ASPIRATION Complaints: no complaints Objective Last 24 Hrs of Vital Signs/I&O Vital Signs Date Time Temp Pulse Resp B/P B/P Pulse O2 O2 Flow FiO2 Mean Ox Delivery Rate 04/10 0722 97.0 82 22 112/76 97 Room Air 04/09 2151 96.7 79 22 112/80 95 04/09 1718 97.9 85 22 120/64 94 Room Air 04/09 1452 96.7 76 18 114/72 94 Room Air Intake & Output 04/10 1600 04/10 0800 04/10 0000 Intake Total 10 400 Output Total Balance 10 400 Intake, IV 10 Intake, Oral 0 400 Number 0 Bowel Movements Patient 103 lb Weight Weight Bed scale Measurement Method Current Medications: Current Medications Sig/Krzysztof Start time Last Medication Dose Route Stop Time Status Admin Amoxicillin/ 500 MG Q12 04/10 1000 DCD Clavulanate Potassium PO Ampicillin Sodium/ 1,500 MG Q12H 04/07 1200 DC 04/10 Sulbactam Sodium IV 0101 Sodium Chloride 100 ML Aspirin 81 MG DAILY 04/08 1000 DCD PO Atorvastatin Calcium 40 MG 1700 04/09 1700 DCD 04/09 PO 1828 Heparin Sodium 5,000 UNIT Q8 04/06 1400 DCD 04/10 (Porcine) [place] 0516 Patient Medication 1 ED ONE ONE 04/10 0945 DC Teaching ED 04/10 0946 Rivastigmine 9.5 MG 04/07 DCD 04/09 TOP 2046 Assessment/Plan Assessment: #Altered mental status: Which could be related to infectious etiology, or neurological events #Aspiration pneumonia: * Will continue tele monitoring * Continue IV Unasyn, * Swallow eval today * Gentle IV hydration @ rate of 50ml/h until diet is ordered. Will change IV fluids today to D5W as the patient has hypernatremia which improved today to 151 after changing her fluid yesterday to D5 half normal saline, yesterday to was 153 * Her pacemaker is incombatible with MRI, so we couldn't proceed with MRI brain #A. Fib s/p pacemaker in the setting of apical thrombus, HF on previous echo with EF 20% * She is not a candidate for anticoagulation, given the high risk of fall * The patient was not taking any medication at home, even though she was prescribed metoprolol and amlodipine during the last month. * Patient was seen by yesterday, no need to Intorregate the pacemaker given her age and comorbidities. The case discussed with the son who want to take his mom home. * Today she was seen by Dr. Hinojosa who recommend to dc Lasix and start her on statin and aspirin #Dehydration with elevated BUN * Patient is more awake no, she still have elevated BUN. She is eats thickened diet but she chokes multiple times. * Hypernatremia improved, will dc IV fluid per attending as the patient has diastolic HF with EF of 20% * #Transaminitis * LFTs slightly elevated, I discussed with Dr. Maher who thinks that her liver May Be Stretched and Causing the Pain and Dilated with Elevated AST ALT and Alkaline Phosphatase, we cannot start her on famotidine and she is nothing by mouth secondary to her the risk of aspiration #Pancreatitis on abdominal ultrasound: I discussed with Dr. Maher, ultrasound is not a good study to assess pancreatitis patient had CAT scan abdomen the day before yesterday and it was normal, her amylase and lipase is within normal limits. #B/L moderate pleural effusion: * Most likely related to heart failure with low EF #Failure to thrive: * Will place neutritional consult. * She failed swallow eval. #Hx. of hypertension * Will hold on BP meds -Nothing by mouth -DVT PPX: Subcutaneous heparin DNR/DNI
[2017-04-10] MEDS ORDERED: EXELON1 EAC1 TOP (09:55)
--- NOTE | 2017-04-10 10:08 | PN- Cardiology ---
Subjective Subjective: The patient is comfortable. No current chest pain or shortness of breath. No palpitations. No diaphoresis. No nausea or vomiting. No lightheadedness or dizziness. Objective Vital Signs and I&Os Vital Signs Date Time Temp Pulse Resp B/P B/P Pulse O2 O2 Flow FiO2 Mean Ox Delivery Rate 04/10 0722 97.0 82 22 112/76 97 Room Air 04/09 2151 96.7 79 22 112/80 95 04/09 1718 97.9 85 22 120/64 94 Room Air 04/09 1452 96.7 76 18 114/72 94 Room Air Intake & Output 04/10 1600 04/10 0800 04/10 0000 04/09 1600 04/09 0800 04/09 0000 Intake Total 10 400 300 450 470 Output Total Balance 10 400 300 450 470 Intake, IV 10 300 450 350 Intake, Oral 0 400 120 Number 0 0 1 Bowel Movements Patient 103 lb 98 lb 8 oz 98 lb 5 oz Weight Weight Bed scale Bed scale Bed scale Measurement Method Physical Exam: Gen: NAD HEENT: normal Lungs: clear to auscultation, normal resp. effort Heart: RRR, S1, S2, 2/6 systolic murmur Abdomen: Soft, nontender, no masses Extremities: No clubbing, cyanosis, or edema. Neuro: Alert and oriented x 3, cranial nerves intact Current Medications: Current Medications Sig/Krzysztof Start time Last Medication Dose Route Stop Time Status Admin Amoxicillin/ 500 MG Q12 04/10 1000 AC Clavulanate Potassium PO Ampicillin Sodium/ 1,500 MG Q12H 04/07 1200 DC 04/10 Sulbactam Sodium IV 0101 Sodium Chloride 100 ML Aspirin 81 MG DAILY 04/08 1000 AC PO Atorvastatin Calcium 40 MG 1700 04/09 1700 AC 04/09 PO 1828 Atorvastatin Calcium 80 MG 1700 04/08 1700 DC 04/08 PO 1734 Dextrose/Water 1,000 ML Q20H 04/08 0930 DC 04/08 IV 1341 Heparin Sodium 5,000 UNIT Q8 04/06 1400 AC 04/10 (Porcine) [place] 0516 Patient Medication 1 ED ONE ONE 04/10 0945 DC Teaching ED 04/10 0946 Potassium Chloride 10 MEQ Q1H 04/09 1045 DC IV 04/09 1146 Potassium Chloride 40 MEQ ONCE ONE 04/09 0915 CAN PO 04/09 0916 Rivastigmine 9.5 MG 04/07 04/09 [facility] 2046 Results Last 48 Hrs of Labs/Mics: Laboratory Tests 04/09/17 0630: Anion Gap 12, Estimated GFR 52 L, BUN/Creatinine Ratio 80.0 H, Triglycerides 99, Cholesterol 188, LDL Cholesterol, Calc 142 H, HDL Cholesterol 27 L, Cholesterol/HDL Ratio 7 H, CBC w Diff NO MAN DIFF REQ, RBC 3.57 L, MCV 101.5 H, MCH 32.7 H, MCHC 32.2 L, RDW 17.4 H, MPV 9.4, Gran % 62.9, Lymphocytes % 27.1, Monocytes % 8.5, Eosinophils % 1.0, Basophils % 0.5, Absolute Granulocytes 4.7, Absolute Lymphocytes 2.0, Absolute Monocytes 0.6, Absolute Eosinophils 0.1, Absolute Basophils 0 Assessment/Plan Assessment/Plan Assessment: 1. History of atrial fibrillation, status post pacemaker. Not anticoagulated. Currently in sinus rhythm. 2. History of HFrEF; currently asymptomatic 3. Bilateral pleural effusions 4. History of left ventricular thrombus 5. moderate mitral insufficiency 6. Moderate to severe tricuspid insufficiency with severe pulmonary hypertension 7. macrocytic Anemia 8. Prerenal azotemia 9. Elevated liver function tests Plan: * Pacemaker was interrogated and is functioning normally * Echocardiogram continues to show severely reduced systolic function and apical thrombus, with no significant change compared to the prior echocardiogram. * Continue current cardiac medications. * Follow up in 1 week after discharge. Continue telemetry? Not applicable
--- NOTE | 2017-04-10 13:32 | PN- Att Addend ---
Attending Addendum Attending Brief Note Patient seen and examined, has advanced dementia and not able to communicate because of that. 86-year-old [place]ian-speaking female with advanced dementia who was 24 care arranged privately at home. Sahara Morales MD had discussed with patient's son yesterday at length. She has very advanced systolic heart failure with globally reduced wall motions and severely reduced EF. She also has a Cardiac thrombus that has not been anticoagulated as she is very high risk for bleeding and falls. She is DNR/DNI but the son is not interested in hospice care here or hospice care at home. She has very poor by mouth intake and he's been managing her with a can of ensure 3 times a day and he feels that's what kept her nutritional and hydration status well up to this point. The nurses feel that when they feed her she chokes but the son is able to feed her without her choking and she does respond to the son. The team yesterday agreed discussing the patient's son that it is in patient's best interest that she goes home. Son wants to take her home. If she deteriorates then she can peacefully at home, if she improves then he would do further management accordingly. We switched her antibiotics to oral and patient will be discharged home today.
== END 2017-04-10 14:15 | DRG 178 ==
LOC: ERH 22:27 → 1NO 04-06 06:24 → ERHI 04-06 06:24 → ENRESERV 04-06 08:43 → ENTRNSPT 04-06 08:59 → EDTRNSPTSTS 04-06 09:47 → EDTRNSPT 04-06 09:47 → 2NB 04-06 09:51 → CMPTRNSPT 04-06 10:13 → 1NO 04-06 14:45 → 2NA 04-09 16:14 → ENPENDDIS 04-10 10:11 → 2NA 04-10 14:15
PROVIDERS: Emergency Medicine; Student in an Organized Health Care Education/Training Program
DX: J69.0 Pneumonitis due to inhalation of food and vomit (principal); J90 Pleural effusion, not elsewhere classified; E87.0 Hyperosmolality and hypernatremia; I27.20 Pulmonary hypertension, unspecified; R13.10 Dysphagia, unspecified; I11.0 Hypertensive heart disease with heart failure; E86.0 Dehydration; I48.91 Unspecified atrial fibrillation; I50.22 Chronic systolic (congestive) heart failure; I51.3 Intracardiac thrombosis, not elsewhere classified; Z68.1 Body mass index [BMI] 19.9 or less, adult; D53.9 Nutritional anemia, unspecified; F03.90 Unspecified dementia, unspecified severity, without behavioral disturbance, psychotic disturbance, mood disturbance, and anxiety; R41.82 Altered mental status, unspecified; R74.0 Nonspecific elevation of levels of transaminase and lactic acid dehydrogenase [LDH]; Z95.0 Presence of cardiac pacemaker; R62.7 Adult failure to thrive; F32.9 Major depressive disorder, single episode, unspecified; Z90.12 Acquired absence of left breast and nipple; Z85.3 Personal history of malignant neoplasm of breast; Z90.49 Acquired absence of other specified parts of digestive tract; M85.80 Other specified disorders of bone density and structure, unspecified site; Z66 Do not resuscitate; Z91.81 History of falling
CPT/HCPCS: 1NSP; 2NASP; 36415; 36592; 71045; 74177; 80307; 81001; 82436; 84481; 87070; 87086; 87804; 87804-59; 93005; 93010; 96360; 96361; C8929; G0480; J0290; J1644; J3490; J7042; J7060; J7120; Q9957